=== PATIENT | male | born 1980 | race African-American/Black ===

== ENCOUNTER 2020-08-08 06:54 | Outpatient (NON) | payer OTHER, SELFPAY ==
[2020-08-08 19:16] LABS: SARS-CoV-2 RNA PCR Negative
== END 2020-08-08 06:55 ==
LOC: ANHCOVIDDT 07:15
PROVIDERS: PCP Family Medicine; Visit Provider Nurse Practitioner Family
DX: R05 Cough (principal); Z20.828 Contact with and (suspected) exposure to other viral communicable diseases
CPT/HCPCS: 87635; C9803; U0003

== ENCOUNTER 2020-08-09 07:37 | Outpatient (CLI) | payer OTHER, SELFPAY ==
--- NOTE | 2020-08-23 21:18 | WPDHOMESLEEP ---
Sleep Study - Home Unattended Date of Study: 08/09/20 Ordering Provider: Patricio Hebert MD Interpreting Physician: Neris Friend MD Home Sleep Study Type: Watch PAT Height: 1.88 m Weight: 95.708 kg Body Mass Index: 27.1 Neck Circumference (inches): 16 [place]: 21 Reason for Sleep Study hypersomnolence Sleep History Bola Shepherd is a 39 year-old male The complains of restlessness and feeling that he cannot breathe during sleep. He has been told by partners that he appears to struggle to breathe at night. He yawned throughout the day. If he is not physically exerting himself PE he will instantly fall asleep. 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 He constantly snores and is constantly loud enough that others complain about it. He frequently awakens at night with heartburn, belching or coughing. He occasionally awakens from sleep feeling short of breath. He rarely has trouble sleep with a cold and rarely gasps for breath at night. He frequently has breathing problems with this by others at night. He rarely sweats excessively at night. He occasionally notices his heart pounding or beating irregularly at night. He constantly falls asleep during the day, frequently involuntarily, rarely while driving. He does not fall asleep while he is physically active. He does not have loss of muscle tone with strong emotion. 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 He does not feel paralyzed on waking or falling asleep. He does not have vivid dreamlike scenes upon awakening or falling asleep. He is not afraid to go to sleep. He denies having nightmares. He occasionally remembers his dreams. He constantly has racing thoughts. He frequently feels sad or depressed. He constantly has anxiety. He denies having muscular tension. He constantly notices parts of his body jerking. He frequently kicks at night. He rarely has crawling and aching feelings in his legs. He constantly has leg pain during the night. He rarely has morning jaw pain. He constantly grind his teeth during sleep. He constantly has bothered by pain during the day, frequently is awakened by pain at night. He constantly wakes up feeling stiff in the morning. Frequently has sore achy muscles in the morning and occasionally wakes up with pain in the neck and spine. He has concentration difficulties, depression, feels unable to have a good time and indicates sexual probelms. Normal bedtime is 9:00 p.m. falling asleep immediately rarely waking up at night. When he does wake during the night he finds things that need to be done throughout his house. He wakes the morning at 4:00 a.m.. We can schedule shows that he goes to bed between 10:00 p.m. and 12 midnight and wakes at 4 in the morning. He estimates getting 4 hours of sleep at night. He does not take naps. A short nap may be refreshing. He is drowsy in the morning for 2 hours or longer. He feels better during the afternoon compared to other times of day. Habits: Tobacco 3/4 pack per day. Caffeine 2 cans per day. Alcohol 1-3 cans per day. No recreational drugs. [facility] Past Medical History Medical History BMI 26.0-26.9,adult Tobacco abuse Family History Family History Father Heart disease Mother Drug abuse Substance abuse Alcohol abuse Sibling Cerebral palsy Other Depression Diabetes mellitus Hypertension Social History Social History Smoking packs per day: 0.5 Smoking cigarettes per day: 10.0 Years smoked: 15 Smoking pack-years: 7.50 Smoking status: Current every day smoker Alcohol intake: current Medications Home Medications Medication Instructions Recorded Confirmed Type sertraline 50 mg tablet 50 mg PO DAILY #30 tablet 08/10/20
[2020-08-23 21:47] VITALS: BMI 27.1
== END 2020-08-09 07:38 | disposition home or self-care (01) ==
LOC: ANHCSM 07:38
PROVIDERS: PCP Family Medicine; Visit Provider Family Medicine
DX: G47.00 Insomnia, unspecified (principal)
CPT/HCPCS: 95800

== ENCOUNTER 2021-01-04 14:20 | Emergency (ER) | payer OTHER, SELFPAY ==
--- NOTE | ~2021-01-04 | CT_ITS ---
EXAMINATION: CT abdomen pelvis w con DATE: 01/04/2021 16:48 INDICATION: Left lower abdominal pain TECHNIQUE: Computed tomography (CT) of the abdomen and pelvis was performed with 100 mL Omnipaque-350 intravenous contrast. Automated exposure control and iterative reconstruction technique were employe d. The dose-length product was 774.64 mGy-cm. COMPARISON: None FINDINGS: Mild dependent atelectasis in the bilateral lower lobes. Heart size is normal. No pericardial or pleu ral effusion. There are at least 3 less than 5 mm low-attenuation hepatic lesions which are too small to definitively characterize most likely cysts or hemangiomas. Mild focal hepatic steatosis at the l igamentum teres. Gallbladder, spleen, pancreas, bilateral adrenal glands and kidneys are normal. Flui d throughout the colon consistent with diarrhea. Mucosal hyperemia and prominent edematous wall thick ening throughout the colon consistent with pancolitis. No pneumatosis or portal venous gas. Normal sm all bowel and appendix. Bladder is normal. No free intraperitoneal gas or fluid. No pathologically en larged abdominal or pelvic lymphadenopathy. Mild thoracolumbar levocurvature. Mild scattered degenera tive skeletal changes. IMPRESSION: 1. Pancolitis and favor infectious or inflammatory over ischemic etiologies. Reviewed, dictated and finalized at location A.
[2021-01-04 14:41] VITALS: BP 128/80; PULSE 92; RESP 18; TEMP 36.7; O2SAT 98
[2021-01-04 14:57] LABS: Hematocrit 42.8 % (42.0-52.0); Hemoglobin 14.4 g/dL (14.0-18.0); Mean Corpuscular HGB Conc 33.6 g/dl (32-36); Mean Corpuscular Volume 89.2 fl (80-100); Mean Platelet Volume 8.4 fl (7.4-10.4); Platelet Count Result 255 k/mm3 (150-375); Red Cell Distribution Width 12.2 % (11.5-14.5); White Blood Count 7.7 K/mm3 (4.5-10.0)
[2021-01-04 15:02] LABS: Add Urine Microscopic? YES; Appearance Urine Cloudy (Clear); Bacteria Urine Trace /hpf; Bilirubin Urine 1+ (Negative); Blood Urine Negative (Negative); Color Urine Amber (Yellow); Glucose Urine UA Negative (Negative); Ketones Urine 1+ mg/dL (Negative); Leukocyte Esterase Ur Negative LEU/UL (Negative); Mucus Urine Heavy /lpf; Nitrate Urine Negative (Negative); Protein Urine 2+ mg/dL (Negative); Squamous Epithelial Cell Urine Occasional /hpf (Few); Urobilinogen Urine Negative mg/dL (<2.0); WBC Urine 0-3 /hpf
[2021-01-04 15:10] LABS: Alanine Aminotransferase 12 U/L (4-50); Albumin Level 4.3 g/dL (3.5-5.1); Alkaline Phosphatase 74 U/L (38-126); Anion Gap 5 mmol/L (8-16); Aspartate Amino Transferase 33 U/L (17-59); Bilirubin,Total 0.6 mg/dL (0.2-1.3); Blood Urea Nitrogen 8 mg/dL (9-20); Calcium 9.1 mg/dL (8.4-10.2); Carbon Dioxide 31 mmol/L (22-30); Chloride 104 mmol/L (98-107); Estimated CRCL calculation 102 ml/min; Estimated Glomerular Filt Rate > 60; Glucose 94 mg/dL (75-110); Potassium 3.7 mmol/L (3.4-5.0); Sodium 140 mmol/L (137-145)
[2021-01-04 15:14] VITALS: BP 143/84; PULSE 82; RESP 17; O2SAT 98
[2021-01-04 15:19] LABS: Prothrombin Time 13.3 Seconds (11.1-14.7)
[2021-01-04 15:29] LABS: Specific Grav Ur 1.035 (1.001-1.035)
[2021-01-04 15:45] LABS: Band Neutrophils Percent 9 % (0-6); Eosinophils Absolute Manual 0.23 K/mm3 (0.02-0.5); Eosinophils Percent Manual 3 % (0-4); Lymphocytes Absolute Manual 2.31 K/mm3 (1.1-4.5); Monocytes Absolute Manual 1.54 K/mm3 (0.1-0.90); Monocytes Percent Manual 20 % (3-9); Neutrophils Absolute Manual 3.61 K/mm3 (1.3-6.7); Neutrophils Percent Manual 38 % (46-73); Platelet Estimate Adequate (Adequate); Total Cells Counted 100
--- NOTE | 2021-01-04 16:08 | ED.ABDPAIN ---
HPI - Abdominal Pain General Chief Complaint: Abdominal Pain Stated Complaint: bloody stool, abd pain Time Seen by Provider: 01/04/21 15:52 Source: patient, RN notes reviewed and old records reviewed Mode of arrival: ambulatory Limitations: no limitations History of Present Illness HPI narrative: This is a 40 year old male who presents from his PCP's office for evaluation of left lower abdominal pain with bloody stools. He reports having constant lower abdominal pain for 1 month. His stools are occasionally bloody. He states this morning he he passed bright red blood. He reports nausea and he state he had fever 100 F at his PCP today. He states they wanted to do labs and CT scan but they were unable to get approved in timely fashion. Denies travel out of country Related Data Home Medications Medication Instructions Recorded Confirmed nystatin TOPICAL 01/04/21 nystatin [Nystop] TOPICAL 01/04/21 sertraline mg 01/04/21 Allergies Allergy/AdvReac Type Severity Reaction Status Date / Time diphenhydramine Allergy Drowsy Verified 01/04/21 13:14 [From Benadryl Allergy] Review of Systems Review of Systems: All systems reviewed & are unremarkable except as noted in HPI and below Constitutional: Constitutional: Denies chills Cardiovascular: Cardiovascular: Denies chest pain Respiratory: Respiratory: Denies cough and Denies dyspnea Gastrointestinal: Gastrointestinal: Reports abdominal pain, Reports nausea and Denies vomiting PMF Past Medical History Medical History BMI 26.0-26.9,adult BMI 28.0-28.9,adult Tobacco abuse Family History Family History Father Heart disease Mother Drug abuse Substance abuse Alcohol abuse Sibling Cerebral palsy Other Depression Diabetes mellitus Hypertension Social History Social History (Updated 01/04/21 @ 13:17 by Carmen Mejias CMA) Smoking packs per day: 0.5 Smoking cigarettes per day: 10.0 Years smoked: 15 Smoking pack-years: 7.50 Smoking status: Former smoker Tobacco type: cigarettes Alcohol intake: current Substance use: current Substance use type: marijuana 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 Gender identity (if verbalized by the patient): Male Exam Const: General: no acute distress and alert Orientation/consciousness: patient oriented x3 Eyes: EOM: EOMs intact bilaterally Chest: Chest palpation & inspection: normal inspection of the chest Resp: Effort & Inspection: normal respiratory effort and no retractions Auscultation: clear to auscultation bilaterally Cardio: Rate: regular rate Rhythm: regular rhythm Heart sounds: no murmurs GI: GI Palp: Yes Soft to palpation, Yes Tenderness to palpation present (GI) (LLQ) and No Guarding due to palpation present (GI) Auscultation: normal bowel sounds Skin: General skin exam: normal color Rashes: no rashes Neuro: General: patient oriented x3, moves all extremities and CN's II-XI intact bilaterally Extrem: General: normal to inspection Psych: Mental Status: mental status grossly normal Affect: normal affect Course Reevaluation(s) Reevaluation #1: PAtient is stable. I discussed with patient plan to discharge on antibiotics with follow up with GI. He will attempted to give stool studies Date: 01/04/21 Time: 17:39 Consultations Consultation #1: I have discussed with Dr. Wynne about patient symptoms, labs and CT . He recommends antibiotics, stool studies, outpatient colonoscopy and follow up in clinic. Date: 01/04/21 Time: 17:40 Vital Signs Vital signs: Vital Signs Temperature 98.1 F 01/04/21 14:41 Pulse Rate 92 01/04/21 14:41 Respiratory Rate 18 01/04/21 14:41 Blood Pressure 128/80 01/04/21 14:41 Pulse Oximetry 98 01/04/21 14:41 Temperature 98.1 F 01/04/21 14:41 Pulse Rate 82
[2021-01-04] MEDS: LACTATED RINGERS 1,000 ML 999 ML IV CONT (16:21)
[2021-01-04] MEDS: metroNIDAZOLE 250 MG TABLET 500 MG PO (18:44)
[2021-01-04] MEDS: CIPROFLOXACIN 500 MG TAB PO (18:44)
[2021-01-04 18:54] VITALS: BP 143/94; PULSE 86; RESP 18; O2SAT 100
== END 2021-01-04 18:56 | disposition home or self-care (01) ==
PROVIDERS: Emergency Medicine; Emergency Provider General Practice; PCP Family Medicine
DX: K51.00 Ulcerative (chronic) pancolitis without complications (principal); Z87.891 Personal history of nicotine dependence
CPT/HCPCS: 36415; 74177; 80053; 81001; 85025; 85610; 85730; 86850; 86900; 86901; 96360; 99284; A9270; J7120; Q9967

== ENCOUNTER 2021-01-11 11:33 | Inpatient (IN) | payer OTHER, SELFPAY ==
[2021-01-11] VITALS (8 sets, daily range): BP systolic 116–148; BP diastolic 68–91; PULSE 90–113; RESP 14–27; TEMP 35.9–37.1; O2SAT 99–100; BMI 26.6
--- NOTE | ~2021-01-11 | CT_ITS ---
EXAMINATION: CT abdomen pelvis w con INDICATION: Abdominal pain TECHNIQUE: Computed tomographic images of the abdomen and pelvis were obtained after the administrati on of 100 cc of Omnipaque 350 intravenous contrast. The dose-length product (DLP) was 01/04/2021 mGy-c m. Automated exposure control and iterative reconstruction technique were employed. COMPARISON: 01/04/2021 FINDINGS: The lung bases are clear. The heart size is normal. Cysts of the liver measure up to 5 mm. The spleen, pancreas, gallbladder, and adrenal glands are normal. The kidneys are unremarkable. There is diffuse wall thickening of the entire colon with interval worsening since the prior examination. The appendix is normal. No pathologically enlarged abdominal or pelvic lymph nodes are identified. Th ere is no free intraperitoneal gas or evidence of bowel obstruction. IMPRESSION: 1. Pancolitis with interval worsening. Reviewed, dictated and finalized at location A.
--- NOTE | 2021-01-11 11:49 | ED.NAVMDI ---
HPI - Nausea/Vomiting/Diarrhea General Chief complaint: Nausea/Vomiting/Diarrhea Stated complaint: dr powell sent for dehydration Time Seen by Provider: 01/11/21 11:48 History of Present Illness HPI Narrative: 40 yo w/ h/o pancolitis sent from Dr. Powell's office for dehydration. He was originally seen here in the ED for bloody diarrhea on 01/04. At that time he was found to have pancolitis on CT. He was started on Cipro and Flagyl and referred to GI. He had a follow-up appointment to day and he was noted to be dehydrated with low blood pressure. He reports that his symptoms have been getting worse. He has diffuse abdominal pain. He reports that he is still having bloody diarrhea. He vomited for the first time today. He denies any medical problem and takes no other medications. Related Data Home Medications Medication Instructions Recorded Confirmed nystatin TOPICAL 01/04/21 01/05/21 nystatin [Nystop] TOPICAL 01/04/21 01/05/21 sertraline mg 01/04/21 01/05/21 Allergies Allergy/AdvReac Type Severity Reaction Status Date / Time diphenhydramine AdvReac Drowsy Verified 01/11/21 11:49 [From Benadryl Allergy] Review of Systems Review of Systems: All systems reviewed & are unremarkable except as noted in HPI and below Constitutional: Constitutional: Reports chills, Reports fatigue, Denies fever(s) and Reports weakness Eyes: Eyes: Reports no additional eye complaints ENT: Reports system reviewed and no additional complaints, except as documented Cardiovascular: Cardiovascular: Denies chest pain Respiratory: Respiratory: Denies dyspnea Gastrointestinal: Gastrointestinal: Reports abdominal pain, Reports diarrhea, Reports nausea and Reports vomiting Genitourinary: Genitourinary: Reports no additional male genitourinary complaints Musculoskeletal: Musculoskeletal: Reports back pain Neurologic: Reports dizziness and Reports weakness Endocrine: Endocrine: Denies polydipsia [facility] Past Medical History Medical History BMI 26.0-26.9,adult BMI 28.0-28.9,adult Tobacco abuse Family History Family History Father Heart disease Mother Drug abuse Substance abuse Alcohol abuse Sibling Cerebral palsy Other Depression Diabetes mellitus Hypertension Social History Social History Smoking packs per day: 0.5 Smoking cigarettes per day: 10.0 Years smoked: 15 Smoking pack-years: 7.50 Smoking status: Former smoker (reports quitting about 1 month ago) Tobacco type: cigarettes Alcohol intake: current Substance use: current Substance use type: marijuana 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 Gender identity (if verbalized by the patient): Male Exam Const: General: no acute distress, alert and ill appearing Orientation/consciousness: patient oriented x3 HENMT: Mouth: Yes dry mucous membranes Neck: Neck: normal visual inspection Resp: Effort & Inspection: normal respiratory effort Auscultation: clear to auscultation bilaterally Cardio: Rate: regular rate Rhythm: regular rhythm GI: Inspection: non-distended GI Palp: Yes Soft to palpation, Yes Tenderness to palpation present (GI) (diffuse), No Guarding due to palpation present (GI) and No Rebound tenderness present Skin: General skin exam: normal color Neuro: General: patient oriented x3, moves all extremities, no focal motor deficits and CN's II-XI intact bilaterally Speech: normal speech Extrem: General: normal to inspection Course Vital Signs Vital signs: Vital Signs Temperature 35.9 C L 01/11/21 11:44 Pulse Rate 113 H 01/11/21 11:44 Respiratory Rate 18 01/11/21 11:44 Blood Pressure 116/90 01/11/21 11:44 Pulse Oximetry 100 01/11/21 11:44 Temperature 35.9 C L 01/11/21 11:44 Pulse Rate 98 01/11/21 13:19
[2021-01-11] MEDS: SODIUM CHLORIDE 0.9% IV 2,000 ML 999 ML IV CONT (12:08)
[2021-01-11] MEDS: ONDANSETRON INJ 4 MG/2 ML VIAL IV PUSH ×3 (12:09→21:10)
[2021-01-11 12:28] LABS: Hematocrit 47.9 % (42.0-52.0); Hemoglobin 16.4 g/dL (14.0-18.0); Mean Corpuscular HGB Conc 34.2 g/dl (32-36); Mean Corpuscular Volume 87.6 fl (80-100); Mean Platelet Volume 8.8 fl (7.4-10.4); Platelet Count Result 430 k/mm3 (150-375); Red Blood Count 5.47 M/mm3 (4.6-6.20); Red Cell Distribution Width 12.2 % (11.5-14.5); White Blood Count 11.3 K/mm3 (4.5-10.0)
[2021-01-11 12:37] LABS: Alanine Aminotransferase 13 U/L (4-50); Albumin Level 4.3 g/dL (3.5-5.1); Alkaline Phosphatase 79 U/L (38-126); Anion Gap 8 mmol/L (8-16); Aspartate Amino Transferase 48 U/L (17-59); Bilirubin,Total 0.4 mg/dL (0.2-1.3); Blood Urea Nitrogen 12 mg/dL (9-20); Calcium 9.6 mg/dL (8.4-10.2); Carbon Dioxide 30 mmol/L (22-30); Chloride 101 mmol/L (98-107); Estimated CRCL calculation 86 ml/min; Estimated Glomerular Filt Rate > 60; Glucose 129 mg/dL (75-110); Lipase 59 U/L (23-300); Potassium 3.5 mmol/L (3.4-5.0); Sodium 139 mmol/L (137-145)
[2021-01-11 12:38] LABS: Lactic Acid Reflex 1.1 mmol/L (0.7-2.1)
[2021-01-11 12:41] LABS: Band Neutrophils Percent 10 % (0-6); Eosinophils Absolute Manual 0.56 K/mm3 (0.02-0.5); Eosinophils Percent Manual 5 % (0-4); Lymphocytes Absolute Manual 2.37 K/mm3 (1.1-4.5); Monocytes Percent Manual 16 % (3-9); Neutrophils Absolute Manual 6.55 K/mm3 (1.3-6.7); Neutrophils Percent Manual 48 % (46-73); Platelet Estimate Adequate (Adequate); Total Cells Counted 100
[2021-01-11] MEDS: MORPHINE SULFATE (*CRX) 4 MG/ML INJ IV PUSH ×3 (14:26→21:10)
[2021-01-11] MEDS: LACTATED RINGERS 1,000 ML 150 ML IV CONT (16:39)
--- NOTE | 2021-01-11 21:05 | PM.IMHP ---
H&P: HPI History of Present Illness Date/Time: 01/11/21 21:05 40 yo w/ h/o pancolitis sent from Dr. Wynne's office for dehydration. He was originally seen here in the ED for bloody diarrhea on 01/04. At that time he was found to have pancolitis on CT. He was started on Cipro and Flagyl and referred to GI. He had a follow-up appointment today and he was noted to be dehydrated with low blood pressure. He reports that his symptoms have been getting worse. He has diffuse abdominal pain, some nausea. He reports that he is still having bloody diarrhea. He vomited for the first time today. He denies any medical problem and takes no other medications. Chief Complaint: bloody diarrhea Review of Systems Review of Systems: Narrative: - CONSTITUTIONAL: Denies weight loss, reports mild fever and chills. - HEENT: Denies changes in vision and hearing - RESPIRATORY: Denies SOB and cough. - CV: Denies palpitations and CP. - GI: reports abdominal pain, nausea, vomiting and diarrhea. - : Denies dysuria and urinary frequency. - MSK: Denies myalgia and joint pain. - SKIN: Denies rash and pruritus. - NEUROLOGICAL: Denies headache and syncope. - PSYCHIATRIC: Denies recent changes in mood. Denies anxiety and depression. All systems reviewed & are unremarkable except as noted in HPI and below Constitutional: Constitutional: Reports fatigue and Reports weakness Neurologic: Reports weakness Endocrine: Endocrine: Reports fatigue [facility] Past Medical History Medical History BMI 26.0-26.9,adult BMI 28.0-28.9,adult Tobacco abuse Family History Family History Father Heart disease Mother Drug abuse Substance abuse Alcohol abuse Sibling Cerebral palsy Other Depression Diabetes mellitus Hypertension Social History Social History Smoking packs per day: 0.75 Smoking cigarettes per day: 15.0 Years smoked: 20 Smoking pack-years: 15.00 Smoking status: Former smoker Tobacco type: cigarettes Alcohol intake: never Substance use: never Substance use type: marijuana 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 Gender identity (if verbalized by the patient): Male Spiritual care concerns: No Meds Home Medications and Allergies Home Medications Medication Instructions Recorded Confirmed Type ciprofloxacin HCl 500 mg PO Q12H #14 tablet 01/04/21 01/11/21 Rx metronidazole [Flagyl] 500 mg PO Q8H 7 Days #21 tablet 01/04/21 01/11/21 Rx tramadol 50 mg tablet 50 mg PO Q8H PRN #60 tablet 01/08/21 01/11/21 Rx Allergies Allergy/AdvReac Type Severity Reaction Status Date / Time diphenhydramine AdvReac Drowsy Verified 01/11/21 11:49 [From Benadryl Allergy] Vital Signs Vital Signs - 24 hr 01/11/21 11:44 01/11/21 13:01 01/11/21 13:16 Temperature 96.6 F L Pulse Rate 113 H 100 94 Respiratory Rate 18 20 14 Blood Pressure 116/90 148/89 H 139/87 Pulse Oximetry 100 100 100 01/11/21 13:19 01/11/21 14:16 01/11/21 14:30 Temperature 98.7 F Pulse Rate 98 104 H 90 Respiratory Rate 27 H 22 H 20 Blood Pressure 116/87 128/91 H 122/75 Pulse Oximetry 100 99 100 01/11/21 14:39 Temperature Pulse Rate 96 Respiratory Rate 16 Blood Pressure 123/80 Pulse Oximetry 99 Exam Narrative: Exam Narrative: GENERAL: The patient is well developed, in mild distress HEENT: Nonicteric sclerae, PERRLA, EOMI. Oropharynx clear. dry mucous membranes. Conjunctivae appear well perfused. CHEST: Chest wall is nontender. HEART: Regular rate and rhythm without murmur, rubs, or gallops LUNGS: Clear to auscultation bilaterally. no respiratory distress ABDOMEN: Soft, positive bowel sounds, tender abdomen diffusely, no organomegaly. SKIN: No rash, no excessive bruising, petechiae, or purpura. NEUROLOGIC: Cranial nerves II-XII in
[2021-01-11 21:53] LABS: CRP 5.7 mg/dL (<1.0)
[2021-01-11 22:02] LABS: Erythrocyte Sedimentation Rate 42 mm/hr (0-20)
[2021-01-11] MEDS: DICYCLOMINE HCL 10 MG CAPSULE PO (22:39)
[2021-01-12] VITALS (8 sets, daily range): BP systolic 101–130; BP diastolic 55–75; PULSE 77–101; RESP 16–23; TEMP 36.2–36.7; O2SAT 95–99; BMI 26.6
[2021-01-12] MEDS: LACTATED RINGERS 1,000 ML 150 ML IV CONT ×5 (00:14→23:57)
[2021-01-12] MEDS: MORPHINE SULFATE (*CRX) 4 MG/ML INJ IV PUSH (02:51)
--- NOTE | 2021-01-12 08:54 | WPDGICN ---
Assessment and Plan Assessment and plan (1) Pancolitis: Code(s): K51.00 - Ulcerative (chronic) pancolitis without complications Status: Acute Assessment and Plan: Pancolitis by CT scan. Differential diagnosis includes infectious etiology. Because of the duration of his illness inflammatory bowel disease also needs to be considered. Agree with IV fluid rehydration. Broad-spectrum antibiotic coverage. Stool cultures will be obtained. A colonoscopy will be arranged hopefully this afternoon to further define the etiology of his colitis. (2) Bloody diarrhea: Code(s): R19.7 - Diarrhea, unspecified Status: Acute Assessment and Plan: Bloody diarrhea on the basis of pancolitis. The bleeding has diminished. His hemoglobin has remained stable. Plan is as described above his treatment for his colitis. Will follow with you during the hospital stay. GI Consult Note Consult date/time: 01/12/21 08:54 HPI: Bola Shepherd is a 40 year old male With a 1 month history of bloody diarrhea. Patient initially presented to the emergency room on 524 with a one-month history of abdominal pain bloody diarrhea. He denies any travel. No one else in the family has been ill. In the emergency room a CT scan was performed which revealed pancolitis. He was placed on Cipro and Flagyl for presumed infectious etiology. Stool cultures were obtained in to date have been negative. He presented to my office yesterday with a low blood pressure. He was diaphoretic. Complained of diffuse abdominal pain ongoing watery bloody stools. Was sent to the emergency room in readmitted. Follow-up CT scan reveals worsening of his pancolitis. Patient has no family history of inflammatory bowel disease. He has no history of travel. No change in his diet. He has been very weak. Although he feels somewhat improved with pain medicines and IV fluid rehydration overnight. He states this morning for the 1st time in quite a while he had watery diarrhea with no evidence of blood. Pain is improved with pain injections. Past medical history is significant for depression and Zoloft is is only recent previous medication. Review of Systems Review of Systems: All systems reviewed & are unremarkable except as noted in HPI and below PMFSH Past Medical History Medical History BMI 26.0-26.9,adult BMI 28.0-28.9,adult Tobacco abuse Family History Family History Father Heart disease Mother Drug abuse Substance abuse Alcohol abuse Sibling Cerebral palsy Other Depression Diabetes mellitus Hypertension Social History Social History Smoking packs per day: 0.75 Smoking cigarettes per day: 15.0 Years smoked: 20 Smoking pack-years: 15.00 Smoking status: Former smoker Tobacco type: cigarettes Alcohol intake: never Substance use: never Substance use type: marijuana 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 Gender identity (if verbalized by the patient): Male Spiritual care concerns: No Meds Home Medications and Allergies Home Medications Medication Instructions Recorded Confirmed Type ciprofloxacin HCl 500 mg PO Q12H #14 tablet 01/04/21 01/11/21 Rx metronidazole [Flagyl] 500 mg PO Q8H 7 Days #21 tablet 01/04/21 01/11/21 Rx tramadol 50 mg tablet 50 mg PO Q8H PRN #60 tablet 01/08/21 01/11/21 Rx Allergies Allergy/AdvReac Type Severity Reaction Status Date / Time diphenhydramine AdvReac Drowsy Verified 01/11/21 11:49 [From Benadryl Allergy] Vital Signs Vital Signs - 24 hr 01/11/21 11:44 01/11/21 13:01 01/11/21 13:16 Temperature 96.6 F L Pulse Rate 113 H 100 94 Respiratory Rate 18 20 14 Blood Pressure 116/90 148/89 H 139/87 Pulse Oximetry 100 100 100 01/11/21 13:19 01/11/21 14:1
[2021-01-12] MEDS: PANTOPRAZOLE SODIUM IV 40 MG VIAL IV PUSH (09:39)
[2021-01-12] MEDS: DICYCLOMINE HCL 10 MG CAPSULE PO ×2 (09:39→15:58)
--- NOTE | 2021-01-12 11:25 | WPDANESEPPF ---
Anes - Initial Pre Proc Eval Procedure: Operation Date: 01/12/21 15:15 Proposed Procedures p Colonoscopy - Ben Wynne MD Date/Time: 01/12/21 11:25 Surgeon: Susan Friedman MD Pre Op Diagnosis: pancolitis Patient Data Age: 40 Gender: M Height: 6 ft 2 in Weight: 94 kg Last Vital Signs Temp 36.2 C L 01/12/21 11:16 Pulse 89 01/12/21 11:16 Resp 20 01/12/21 11:16 BP 121/70 01/12/21 11:16 Pulse Ox 96 01/12/21 11:16 Allergies Allergy/AdvReac Type Severity Reaction Status Date / Time diphenhydramine AdvReac Drowsy Verified 01/11/21 11:49 [From Benadryl Allergy] Home Medications Medication Instructions Recorded Confirmed Type ciprofloxacin HCl 500 mg PO Q12H #14 tablet 01/04/21 01/11/21 Rx metronidazole [Flagyl] 500 mg PO Q8H 7 Days #21 tablet 01/04/21 01/11/21 Rx tramadol 50 mg tablet 50 mg PO Q8H PRN #60 tablet 01/08/21 01/11/21 Rx Laboratory Tests 01/11/21 01/11/21 01/11/21 12:04 12:04 12:04 WBC 11.3 K/mm3 H K/mm3 (4.5-10.0) RBC 5.47 M/mm3 M/mm3 (4.6-6.20) Hgb 16.4 g/dL g/dL (14.0-18.0) Hct 47.9 % % (42.0-52.0) MCV 87.6 fl fl (80-100) MCH 30.0 pg pg (26-34) MCHC 34.2 g/dl g/dl (32-36) RDW 12.2 % % (11.5-14.5) Plt Count 430 k/mm3 H D k/mm3 (150-375) MPV 8.8 fl fl (7.4-10.4) Immature Gran % (Auto) Not Reportable Neut % (Auto) Not Reportable Lymph % (Auto) Not Reportable [place] % (Auto) Not Reportable Eos % (Auto) Not Reportable Baso % (Auto) Not Reportable Lymph # (Auto) Not Reportable [place] # (Auto) Not Reportable Eos # (Auto) Not Reportable Baso # (Auto) Not Reportable Abs Immat Gran (auto) Not Reportable Absolute Neuts (auto) Not Reportable Absolute Nucleated RBC Not Reportable Total Counted 100 Neutrophils % (Manual) 48 % % (46-73) Band Neutrophils % 10 % H % (0-6) Lymphocytes % (Manual) 21.0 % % (18-44) Monocytes % (Manual) 16 % H % (3-9) Eosinophils % (Manual) 5 % H % (0-4) Nucleated RBC % Not Reportable Abs Neuts (Manual) 6.55 K/mm3 K/mm3 (1.3-6.7) Abs Lymphs (Manual) 2.37 K/mm3 K/mm3 (1.1-4.5) Abs Monocytes (Manual) 1.80 K/mm3 H K/mm3 (0.1-0.90) Absolute Eos (Manual) 0.56 K/mm3 H K/mm3 (0.02-0.5) Platelet Estimate Adequate (Adequate) ESR Sodium 139 mmol/L mmol/L (137-145) Potassium 3.5 mmol/L mmol/L (3.4-5.0) Chloride 101 mmol/L mmol/L (98-107) Carbon Dioxide 30 mmol/L mmol/L (22-30) Anion Gap 8 mmol/L mmol/L (8-16) BUN 12 mg/dL mg/dL (9-20) Creatinine 1.20 mg/dL mg/dL (0.7-1.3) Estim Creat Clear Calc 86 ml/min ml/min Estimated GFR > 60 (59 - ) Glucose 129 mg/dL H mg/dL (75-110) Lactic Acid Calcium 9.6 mg/dL mg/dL (8.4-10.2) Total Bilirubin 0.4 mg/dL mg/dL (0.2-1.3) AST 48 U/L U/L (17-59) ALT 13 U/L U/L (4-50) Alkaline Phosphatase 79 U/L U/L (38-126) C-Reactive Protein Total Protein 8.0 g/dL g/dL (6.3-8.2) Albumin 4.3 g/dL g/dL (3.5-5.1) Lipase 59 U/L U/L Cancelled (23-300) Stool Calprotectin Stool Rotavirus Antigen Stool H. pylori Ag Stool Norovirus (PCR) Ova & Parasites 01/11/21 01/11/21 01/11/21 12:04 12:04 12:17 WBC RBC Hgb Hct MCV MCH MCHC RDW Plt Count MPV Immature Gran % (Auto) Neut % (Auto)
--- NOTE | 2021-01-12 15:50 | PM.IMPN ---
Progress Note: A&P Assessment and Plan (1) Pancolitis: Code(s): K51.00 - Ulcerative (chronic) pancolitis without complications Status: Acute (2) Dehydration: Code(s): E86.0 - Dehydration Status: Acute (3) Bloody diarrhea: Code(s): R19.7 - Diarrhea, unspecified Status: Acute (4) IBS (irritable bowel syndrome): Code(s): K58.9 - Irritable bowel syndrome without diarrhea Status: Acute Additional Plan x1 month CT wth pancolitis continue on zosyn iv recent treatment with po cirpo and Flagyl failed op therapy GI following, Dr. Wynne, recommendations appreciated s/p colonoscopy with biopsy-->IBS H/H stable, monitor continue IVF monitor BMP follow stool cultures follow blood cultures # DVT ppx: SCDs Subjective Date/time seen: 01/12/21 15:50 pt seen and evaluated; continues with abdominal pain; fiance at the beside Review of Systems Review of Systems: All systems reviewed & are unremarkable except as noted in HPI and below Exam Narrative: Exam Narrative: GENERAL: The patient is well developed, in mild distress HEENT: Nonicteric sclerae, PERRLA, EOMI. Oropharynx clear. dry mucous membranes. Conjunctivae appear well perfused. CHEST: Chest wall is nontender. HEART: Regular rate and rhythm without murmur, rubs, or gallops LUNGS: Clear to auscultation bilaterally. no respiratory distress ABDOMEN: Soft, positive bowel sounds, tender abdomen diffusely, no organomegaly. SKIN: No rash, no excessive bruising, petechiae, or purpura. NEUROLOGIC: Cranial nerves II-XII intact, alert and oriented x 3, no gross motor deficits EXTREMITIES: no edema, cyanosis or clubbing Objective Data Vital Signs Vital Signs: Vital Signs - 24 hr 01/11/21 21:53 01/12/21 05:56 01/12/21 11:16 Temperature 36.3 C L 36.6 C 36.2 C L Pulse Rate 101 H 77 89 Respiratory Rate 20 18 20 Blood Pressure 120/68 127/67 121/70 Pulse Oximetry 100 97 96 01/12/21 12:26 01/12/21 12:36 01/12/21 12:46 Temperature Pulse Rate 100 100 100 Respiratory Rate 23 H 22 H 20 Blood Pressure 101/55 L 115/61 130/75 Pulse Oximetry 99 99 99 01/12/21 14:00 Temperature 36.7 C Pulse Rate 101 H Respiratory Rate 16 Blood Pressure 116/60 Pulse Oximetry 99 Intake/Output Intake/Output: Intake & Output 01/09/21 01/10/21 01/11/21 01/12/21 23:59 23:59 23:59 23:59 Intake Total 3200 1740 Output Total 200 400 Balance 3000 1340 Meds/Results Medications: Active Medications Generic Name Dose Route Start Last Admin Trade Name Freq PRN Reason Stop Dose Admin Dicyclomine HCl 10 mg 01/11/21 20:18 01/12/21 09:39 Dicyclomine Hcl 10 Mg Capsule PO 10 mg Q6H PRN Administration Abdominal Cramping Piperacillin/Tazobactam/Dextrose 3.375 gm in 50 mls @ 100 mls/hr 01/11/21 18:00 01/12/21 13:16 Zosyn 3.375 Gm/D5w 50ml Pm IVPB 100 mls/hr Q6HR FOREIGN Administration Lactated Ringer's 1,000 mls @ 150 mls/hr 01/11/21 13:35 01/12/21 12:54 Lr - Lactated Ringers Iv IV CONT Infused .Q6H40M FOREIGN Infusion Mesalamine 800 mg 01/12/21 13:00 Mesalamine 400 Mg Delayed Release Capsule PO TID FOREIGN Methylprednisolone Sodium Succinate 40 mg 01/12/21 14:00 Methylprednisolone Sod Succ 40 Mg Vial IV PUSH Q8HR FOREIGN Morphine Sulfate 4 mg 01/11/21 13:31 01/12/21 02:51 Morphine Sulfate (*Crx) 4 Mg/Ml Inj IV PUSH 4 mg Q2H PRN Administration Pain Rated 7-10 Ondansetron HCl 4 mg 01/11/21 13:31 01/11/21 21:10 Ondansetron Inj 4 Mg/2 Ml Vial IV PUSH 4 mg Q4H PRN Administration Nausea Pantoprazole Sodium 40 mg 01/12/21 09:00 01/12/21 09:39 Pantoprazole Sodium Iv 40 Mg Vial IV PUSH 40 mg QAM FOREIGN Administration Radiology Results: ITS Impressions Abdomen/Pelvis CT 01/11/21 13:04 IMPRESSION: 1. Pancolitis with interval worsening. Labs Labs: Laboratory Results - last 24 hr 01/11/21 01/11/21 01/11/21 12:04 12:04 23:51 ESR 42
[2021-01-12] MEDS: methylPREDNISolone SOD SUCC 40 MG VIAL IV PUSH ×2 (15:59→20:37)
[2021-01-12] MEDS: MESALAMINE 400 MG DELAYED RELEASE CAPSULE 800 MG PO ×2 (15:59→20:36)
[2021-01-12] MEDS: HYDROcodone/acetaminophen (*CRX) 5-325 MG TABLET 1 TAB PO (18:18)
[2021-01-13] MEDS: DICYCLOMINE HCL 10 MG CAPSULE PO (03:15)
[2021-01-13] MEDS: HYDROcodone/acetaminophen (*CRX) 5-325 MG TABLET 1 TAB PO (03:15)
[2021-01-13 05:41] VITALS: BP 119/72; PULSE 79; RESP 18; TEMP 36.2; O2SAT 97
[2021-01-13] MEDS: methylPREDNISolone SOD SUCC 40 MG VIAL IV PUSH (06:16)
[2021-01-13] MEDS: MESALAMINE 400 MG DELAYED RELEASE CAPSULE 800 MG PO ×3 (08:55→17:38)
[2021-01-13] MEDS: PANTOPRAZOLE SODIUM IV 40 MG VIAL IV PUSH (08:55)
[2021-01-13 10:30] LABS: Anion Gap 6 mmol/L (8-16); Blood Urea Nitrogen 5 mg/dL (9-20); Calcium 8.8 mg/dL (8.4-10.2); Carbon Dioxide 32 mmol/L (22-30); Chloride 103 mmol/L (98-107); Estimated CRCL calculation 102 ml/min; Estimated Glomerular Filt Rate > 60; Glucose 180 mg/dL (75-110); Potassium 3.4 mmol/L (3.4-5.0); Sodium 141 mmol/L (137-145)
[2021-01-13 10:42] LABS: Hematocrit 36.4 % (42.0-52.0); Hemoglobin 12.2 g/dL (14.0-18.0); Mean Corpuscular HGB Conc 33.5 g/dl (32-36); Mean Corpuscular Hemoglobin 29.9 pg (26-34); Mean Corpuscular Volume 89.2 fl (80-100); Mean Platelet Volume 8.7 fl (7.4-10.4); Platelet Count Result 313 k/mm3 (150-375); Red Blood Count 4.08 M/mm3 (4.6-6.20); Red Cell Distribution Width 12.4 % (11.5-14.5); White Blood Count 9.3 K/mm3 (4.5-10.0)
[2021-01-13 10:45] LABS: Band Neutrophils Percent 13 % (0-6); Lymphocytes Absolute Manual 0.93 K/mm3 (1.1-4.5); Monocytes Absolute Manual 0.27 K/mm3 (0.1-0.90); Monocytes Percent Manual 3 % (3-9); Neutrophils Absolute Manual 8.09 K/mm3 (1.3-6.7); Neutrophils Percent Manual 74 % (46-73); Platelet Estimate Adequate (Adequate); Total Cells Counted 100
--- NOTE | 2021-01-13 11:11 | P.PNAN_ITS ---
Anes - Prog Note Post-Op Date/Time: 01/13/21 11:11 Cardiovascular status: normal Respiratory status: normal Airway patency: baseline Mental status: baseline Post-Op hydration status: normal Vital Signs: Last Vital Signs Temp 36.2 C L 01/13/21 05:41 Pulse 79 01/13/21 05:41 Resp 18 01/13/21 05:41 BP 119/72 01/13/21 05:41 Pulse Ox 97 01/13/21 05:41 Pain Score (VAS): 0 I/O: Intake & Output 01/12/21 01/13/21 01/13/21 23:59 07:59 15:59 Intake Total 1600 850 Balance 1600 850 Laboratory Tests 01/13/21 10:07 01/13/21 10:07 01/13/21 01/13/21 10:07 10:07 WBC 9.3 RBC 4.08 L Hgb 12.2 L D Hct 36.4 L MCV 89.2 MCH 29.9 MCHC 33.5 RDW 12.4 Plt Count 313 MPV 8.7 Immature Gran % (Auto) Not Reportable Neut % (Auto) Not Reportable Lymph % (Auto) Not Reportable [place] % (Auto) Not Reportable Eos % (Auto) Not Reportable Baso % (Auto) Not Reportable Lymph # (Auto) Not Reportable [place] # (Auto) Not Reportable Eos # (Auto) Not Reportable Baso # (Auto) Not Reportable Abs Immat Gran (auto) Not Reportable Absolute Neuts (auto) Not Reportable Absolute Nucleated RBC Not Reportable Total Counted 100 Neutrophils % (Manual) 74 H Band Neutrophils % 13 H Lymphocytes % (Manual) 10.0 L Monocytes % (Manual) 3 Nucleated RBC % Not Reportable Abs Neuts (Manual) 8.09 H Abs Lymphs (Manual) 0.93 L Abs Monocytes (Manual) 0.27 Platelet Estimate Adequate Sodium 141 Potassium 3.4 Chloride 103 Carbon Dioxide 32 H Anion Gap 6 L BUN 5 L D Creatinine 1.00 Estim Creat Clear Calc 102 Estimated GFR > 60 Glucose 180 H Calcium 8.8 Microbiology 01/11/21 12:17 Blood Blood Culture - Preliminary 01/11/21 12:17 Blood Blood Culture - Preliminary 01/11/21 23:51 Stool Clostridioides difficile Toxin Assay - Final Post-procedural complaints: none Patient Feedback: Patient satisfied with anesthetic care.
--- NOTE | 2021-01-13 12:55 | PM.IMPN ---
Progress Note: A&P Assessment and Plan (1) Pancolitis: Code(s): K51.00 - Ulcerative (chronic) pancolitis without complications Status: Acute (2) Dehydration: Code(s): E86.0 - Dehydration Status: Acute (3) Bloody diarrhea: Code(s): R19.7 - Diarrhea, unspecified Status: Acute (4) IBS (irritable bowel syndrome): Code(s): K58.9 - Irritable bowel syndrome without diarrhea Status: Acute Additional Plan x1 month CT wth pancolitis continue on zosyn iv recent treatment with po cirpo and Flagyl failed op therapy GI following, Dr. Wynne, recommendations appreciated s/p colonoscopy with biopsy-->IBS H/H stable, monitor continue IVF monitor BMP follow stool cultures follow blood cultures # DVT ppx: SCDs Subjective Date/time seen: 01/13/21 12:55 Pancolitis Pt seen and evaluated; reports abdominal pain (06/17) and cramping overnight; denies any N/V Review of Systems Review of Systems: All systems reviewed & are unremarkable except as noted in HPI and below Exam Narrative: Exam Narrative: GENERAL: The patient is well developed, in mild distress HEENT: Nonicteric sclerae, PERRLA, EOMI. Oropharynx clear. dry mucous membranes. Conjunctivae appear well perfused. CHEST: Chest wall is nontender. HEART: Regular rate and rhythm without murmur, rubs, or gallops LUNGS: Clear to auscultation bilaterally. no respiratory distress ABDOMEN: Soft, positive bowel sounds, tender abdomen diffusely, no organomegaly. SKIN: No rash, no excessive bruising, petechiae, or purpura. NEUROLOGIC: Cranial nerves II-XII intact, alert and oriented x 3, no gross motor deficits EXTREMITIES: no edema, cyanosis or clubbing Objective Data Vital Signs Vital Signs: Vital Signs - 24 hr 01/12/21 14:00 01/12/21 20:00 01/12/21 22:00 Temperature 36.7 C 36.3 C L Pulse Rate 101 H 90 Respiratory Rate 16 18 Blood Pressure 116/60 107/57 L Pulse Oximetry 99 95 95 01/13/21 05:41 Temperature 36.2 C L Pulse Rate 79 Respiratory Rate 18 Blood Pressure 119/72 Pulse Oximetry 97 Intake/Output Intake/Output: Intake & Output 01/10/21 01/11/21 01/12/21 01/13/21 23:59 23:59 23:59 23:59 Intake Total 3200 3390 850 Output Total 200 400 Balance 3000 2990 850 Meds/Results Medications: Active Medications Generic Name Dose Route Start Last Admin Trade Name Freq PRN Reason Stop Dose Admin Hydrocodone Bitart/Acetaminophen 1 tab 01/12/21 17:27 01/13/21 03:15 Hydrocodone/Acetaminophen (*Crx) 5-325 Mg Tablet PO 1 tab Q6H PRN Administration Pain Rated 4-10 Dicyclomine HCl 10 mg 01/11/21 20:18 01/13/21 03:15 Dicyclomine Hcl 10 Mg Capsule PO 10 mg Q6H PRN Administration Abdominal Cramping Piperacillin/Tazobactam/Dextrose 3.375 gm in 50 mls @ 100 mls/hr 01/11/21 18:00 01/13/21 12:01 Zosyn 3.375 Gm/D5w 50ml Pm IVPB 100 mls/hr Q6HR FOREIGN Administration Lactated Ringer's 1,000 mls @ 150 mls/hr 01/11/21 13:35 01/13/21 05:32 Lr - Lactated Ringers Iv IV CONT Not Given .Q6H40M FOREIGN Mesalamine 800 mg 01/12/21 13:00 01/13/21 12:03 Mesalamine 400 Mg Delayed Release Capsule PO 800 mg TID FOREIGN Administration Methylprednisolone Sodium Succinate 40 mg 01/12/21 14:00 01/13/21 06:16 Methylprednisolone Sod Succ 40 Mg Vial IV PUSH 40 mg Q8HR FOREIGN Administration Ondansetron HCl 4 mg 01/11/21 13:31 01/11/21 21:10 Ondansetron Inj 4 Mg/2 Ml Vial IV PUSH 4 mg Q4H PRN Administration Nausea Pantoprazole Sodium 40 mg 01/12/21 09:00 01/13/21 08:55 Pantoprazole Sodium Iv 40 Mg Vial IV PUSH 40 mg QAM FOREIGN Administration Radiology Results: ITS Impressions Abdomen/Pelvis CT 01/11/21 13:04 IMPRESSION: 1. Pancolitis with interval worsening. Labs Labs: Laboratory Results - last 24 hr 01/13/21 01/13/21 10:07 10:07 WBC 9.3 RBC 4.08 L Hgb 12.2 L D Hct 36.4 L MCV 89.2 MCH 29.9 MCHC 33.5 RDW 1
--- NOTE | 2021-01-13 12:58 | WPDGIPROGNO ---
Progress Note: A&P Assessment and Plan (1) Pancolitis: Code(s): K51.00 - Ulcerative (chronic) pancolitis without complications Status: Acute Assessment and Plan: - Colonoscopy 01-12-21 Pancolitis s/p multiple biopsy - Follow up with Dr Wynne for Biopsy results out patient - Switch to oral prednisone - Continue mesalamine out patient - Continue present diet. - May be discharged home if tolerates Time Spent With Patient Time with patient: 25 - 35 minutes Subjective Date/time seen: 01/13/21 12:58 Review of Systems Review of Systems: Narrative: Feeling much better today. Tolerating solids. Only 2 loose BM today with a little blood. Pain shot at 3 am. Has not needed any since then. Overall feeling much better. Constitutional: Constitutional: Reports no additional constitutional complaints Cardiovascular: Cardiovascular: Reports no additional cardiovascular complaints Respiratory: Respiratory: Reports no additional respiratory complaints Gastrointestinal: Gastrointestinal: Reports as per HPI Musculoskeletal: Musculoskeletal: Reports no additional musculoskeletal complaints Exam Const: General: comfortable and no acute distress HENMT: Head: normal to inspection Resp: Effort & Inspection: normal respiratory effort Auscultation: clear to auscultation bilaterally Cardio: Rate: regular rate Rhythm: regular rhythm GI: Inspection: normal to inspection GI Palp: Yes Other GI palpation findings present (NON tender ) Auscultation: normal bowel sounds Rectal Exam: deferred Skin: General skin exam: no rashes or lesions noted Neuro: General: patient oriented x3 Speech: normal speech Psych: Mental Status: mental status grossly normal Objective Data Vital Signs Vital Signs: Vital Signs - 24 hr 01/12/21 14:00 01/12/21 20:00 01/12/21 22:00 Temperature 36.7 C 36.3 C L Pulse Rate 101 H 90 Respiratory Rate 16 18 Blood Pressure 116/60 107/57 L Pulse Oximetry 99 95 95 01/13/21 05:41 Temperature 36.2 C L Pulse Rate 79 Respiratory Rate 18 Blood Pressure 119/72 Pulse Oximetry 97 Intake/Output Intake/Output: Intake & Output 01/10/21 01/11/21 01/12/21 01/13/21 23:59 23:59 23:59 23:59 Intake Total 3200 3390 850 Output Total 200 400 Balance 3000 2990 850 Meds/Results Medications: Active Medications Generic Name Dose Route Start Last Admin Trade Name Freq PRN Reason Stop Dose Admin Hydrocodone Bitart/Acetaminophen 1 tab 01/12/21 17:27 01/13/21 03:15 Hydrocodone/Acetaminophen (*Crx) 5-325 Mg Tablet PO 1 tab Q6H PRN Administration Pain Rated 4-10 Dicyclomine HCl 10 mg 01/11/21 20:18 01/13/21 03:15 Dicyclomine Hcl 10 Mg Capsule PO 10 mg Q6H PRN Administration Abdominal Cramping Piperacillin/Tazobactam/Dextrose 3.375 gm in 50 mls @ 100 mls/hr 01/11/21 18:00 01/13/21 12:01 Zosyn 3.375 Gm/D5w 50ml Pm IVPB 100 mls/hr Q6HR FOREIGN Administration Lactated Ringer's 1,000 mls @ 150 mls/hr 01/11/21 13:35 01/13/21 05:32 Lr - Lactated Ringers Iv IV CONT Not Given .Q6H40M FOREIGN Mesalamine 800 mg 01/12/21 13:00 01/13/21 12:03 Mesalamine 400 Mg Delayed Release Capsule PO 800 mg TID FOREIGN Administration Methylprednisolone Sodium Succinate 40 mg 01/12/21 14:00 01/13/21 06:16 Methylprednisolone Sod Succ 40 Mg Vial IV PUSH 40 mg Q8HR FOREIGN Administration Ondansetron HCl 4 mg 01/11/21 13:31 01/11/21 21:10 Ondansetron Inj 4 Mg/2 Ml Vial IV PUSH 4 mg Q4H PRN Administration Nausea Pantoprazole Sodium 40 mg 01/12/21 09:00 01/13/21 08:55 Pantoprazole Sodium Iv 40 Mg Vial IV PUSH 40 mg QAM FOREIGN Administration Radiology Results: ITS Impressions Abdomen/Pelvis CT 01/11/21 13:04 IMPRESSION: 1. Pancolitis with interval worsening. Labs Labs: Laboratory Results - last 24 hr 01/13/21 01/13/21 10:07 10:07 WBC 9.3 RBC 4.08 L Hgb 12.2 L D Hct 36.4 L MCV 89.2 MCH 29.9
[2021-01-13] MEDS: LACTATED RINGERS 1,000 ML 150 ML IV CONT ×2 (13:45→23:19)
[2021-01-13 14:00] VITALS: BP 111/60; PULSE 94; RESP 18; TEMP 36.4; O2SAT 98
[2021-01-13 21:59] VITALS: BP 132/74; PULSE 82; RESP 16; TEMP 36.4; O2SAT 99
[2021-01-14 06:00] VITALS: BP 120/74; PULSE 83; RESP 16; TEMP 37.3; O2SAT 98
[2021-01-14] MEDS: LACTATED RINGERS 1,000 ML 150 ML IV CONT (06:05)
[2021-01-14 07:17] LABS: Hematocrit 34.3 % (42.0-52.0); Hemoglobin 11.5 g/dL (14.0-18.0); Mean Corpuscular HGB Conc 33.5 g/dl (32-36); Mean Corpuscular Hemoglobin 29.7 pg (26-34); Mean Corpuscular Volume 88.6 fl (80-100); Mean Platelet Volume 8.7 fl (7.4-10.4); Platelet Count Result 297 k/mm3 (150-375); Red Blood Count 3.87 M/mm3 (4.6-6.20); Red Cell Distribution Width 12.3 % (11.5-14.5); White Blood Count 10.9 K/mm3 (4.5-10.0)
[2021-01-14 07:29] LABS: Anion Gap 4 mmol/L (8-16); Blood Urea Nitrogen 6 mg/dL (9-20); Calcium 8.4 mg/dL (8.4-10.2); Carbon Dioxide 30 mmol/L (22-30); Chloride 106 mmol/L (98-107); Estimated CRCL calculation 125 ml/min; Estimated Glomerular Filt Rate > 60; Glucose 128 mg/dL (75-110); Sodium 140 mmol/L (137-145)
[2021-01-14] MEDS: PANTOPRAZOLE SODIUM IV 40 MG VIAL IV PUSH (07:58)
[2021-01-14] MEDS: MESALAMINE 400 MG DELAYED RELEASE CAPSULE 800 MG PO (07:58)
[2021-01-14] MEDS: predniSONE 20 MG TABLET 40 MG PO (07:58)
[2021-01-14 08:09] LABS: Band Neutrophils Percent 3 % (0-6); Basophils Percent Manual 1 % (0-1); Eosinophils Absolute Manual 0.21 K/mm3 (0.02-0.5); Eosinophils Percent Manual 2 % (0-4); Lymphocytes Absolute Manual 2.83 K/mm3 (1.1-4.5); Monocytes Absolute Manual 1.09 K/mm3 (0.1-0.90); Monocytes Percent Manual 10 % (3-9); Neutrophils Absolute Manual 6.64 K/mm3 (1.3-6.7); Neutrophils Percent Manual 58 % (46-73); Total Cells Counted 100
[2021-01-14 08:10] LABS: Burr Cells 1+ (NORMAL); Ovalocytes 1+ (NORMAL); Platelet Estimate Adequate (Adequate)
--- NOTE | 2021-01-14 12:13 | PM.DS ---
DS: Admitting Diagnosis Admitting Diagnosis Admitting Diagnosis: Bloody diarrhea DS: Discharge Diagnosis Discharge Diagnosis (1) Pancolitis: Code(s): K51.00 - Ulcerative (chronic) pancolitis without complications Status: Acute Assessment and Plan: Recent treatment with oral ciprofloxacin and Flagyl failed outpatient treatment GI following, Dr. Wynne pt started on mesalasime and steroids. s/p colonoscopy with biopsy, biopsy report not fully reported yet. Pt treated with iv zosyn while in hospital, symptoms are cleared, pt wants to be discharged today. DC on mesalamine and steroids. (2) Dehydration: Code(s): E86.0 - Dehydration Status: Resolved (3) Bloody diarrhea: Code(s): R19.7 - Diarrhea, unspecified Status: Resolved (4) IBS (irritable bowel syndrome): Code(s): K58.9 - Irritable bowel syndrome without diarrhea Status: Resolved Assessment and Plan: IBS v pancolitis Pt is awaiting biopsy result, colonoscopy taken. DS: Summary Hospital Course Hospital Course: IBS v pancolitis. Pt seen and evaluated; reports abdominal pain (10/10) and cramping and blood diarrhea. Pt shows pancolitis on CT. Pt had colonoscopy and biopsy. Biopsy report not fully reported yet. Pt treated with iv zosyn while in hospital, symptoms are cleared, pt wants to be discharged today. DC on mesalamine and steroids. Time Spent with Patient Time attestation: Total time spent providing and/or coordinating discharge services:40 minutes on day of dischrage Exam Narrative: Exam Narrative: GENERAL: The patient is well developed, in mild distress HEART: Regular rate and rhythm without murmur, rubs, or gallops LUNGS: Clear to auscultation bilaterally. no respiratory distress ABDOMEN: Soft, positive bowel sounds, tender abdomen diffusely, no organomegaly. SKIN: No rash, no excessive bruising, petechiae, or purpura. NEUROLOGIC: Cranial nerves II-XII intact, alert and oriented x 3, no gross motor deficits EXTREMITIES: no edema, cyanosis or clubbing DS: Data Data Completed and Pending Pending studies at discharge: Pending at discharge 01/12/21 12:23 Surgical [PTH] Routine Labs on day of discharge: Labs from last 24 hours 01/14/21 01/14/21 06:23 06:23 WBC 10.9 H RBC 3.87 L Hgb 11.5 L Hct 34.3 L MCV 88.6 MCH 29.7 MCHC 33.5 RDW 12.3 Plt Count 297 MPV 8.7 Immature Gran % (Auto) Not Reportable Neut % (Auto) Not Reportable Lymph % (Auto) Not Reportable [place] % (Auto) Not Reportable Eos % (Auto) Not Reportable Baso % (Auto) Not Reportable Lymph # (Auto) Not Reportable [place] # (Auto) Not Reportable Eos # (Auto) Not Reportable Baso # (Auto) Not Reportable Abs Immat Gran (auto) Not Reportable Absolute Neuts (auto) Not Reportable Absolute Nucleated RBC Not Reportable Total Counted 100 Neutrophils % (Manual) 58 Band Neutrophils % 3 Lymphocytes % (Manual) 26.0 Monocytes % (Manual) 10 H Eosinophils % (Manual) 2 Basophils % (Manual) 1 Nucleated RBC % Not Reportable Abs Neuts (Manual) 6.64 Abs Lymphs (Manual) 2.83 Abs Monocytes (Manual) 1.09 H Absolute Eos (Manual) 0.21 Abs Basophils (Manual) 0.10 Platelet Estimate Adequate Ovalocytes 1+ [place] Cells 1+ Sodium 140 Potassium 3.0 L Chloride 106 Carbon Dioxide 30 Anion Gap 4 L BUN 6 L Creatinine 0.80 Estim Creat Clear Calc 125 Estimated GFR > 60 Glucose 128 H Calcium 8.4 Preliminary micro results at discharge 01/11/21 12:17 Blood Culture - Preliminary Blood 01/11/21 12:17 Blood Culture - Preliminary Blood Discharge Plan Discharge Attending physician on discharge: Yola Poe Consulting providers: Ben Wynne ; Emeterio Hensley Sean C. ; Lupe Garza ; Rebeca Nova Discharging Clinician: Yola Poe Anticipated Discharge Date/Time: 01/14/21 12:08 Patient Disposit
[2021-01-14 17:20] LABS: Rotavirus Stool Not Detected
[2021-01-18 14:30] LABS: Norovirus RNA PCR, Stool NOT DETECTED
[2021-01-22 18:12] LABS: Calprotectin, Stool 2350 mcg/g
== END 2021-01-14 13:10 | disposition home or self-care (01) | DRG 387 ==
LOC: ANHED 14:02 → ANH3MEDSUR 14:30
PROVIDERS: Internal Medicine; Internal Medicine Gastroenterology; Nurse Practitioner Adult Health; Admitting Provider Hospitalist; Emergency Provider Emergency Medicine; PCP Family Medicine; Visit Provider Family Medicine
PROC: 0DJD8ZZ Inspection of Lower Intestinal Tract, Via Natural or Artificial Opening Endoscopic (ICD-10-PCS; CPT 45378; principal; 2021-01-12 15:15)
DX: K51.00 Ulcerative (chronic) pancolitis without complications (principal); E86.0 Dehydration; K58.9 Irritable bowel syndrome, unspecified; Z87.891 Personal history of nicotine dependence
CPT/HCPCS: 36415; 74177; 80048; 80053; 83605; 83690; 83993; 85025; 85652; 86140; 87040; 87045; 87046; 87177; 87209; 87324; 87338; 87425; 87427; 87798; 88305; 96361; 96365; 96367; 96375; 96376; 99285; A9270; C9113; G0378; J0131; J2270; J2405; J2543; J2704; J2920; J7030; J7120; J7512; Q9967

== ENCOUNTER 2021-01-21 07:43 | Inpatient (IN) | payer OTHER, SELFPAY ==
[2021-01-21] VITALS (17 sets, daily range): BP systolic 106–137; BP diastolic 59–78; PULSE 106–140; RESP 18–26; TEMP 36.8–37.4; O2SAT 97–100
--- NOTE | ~2021-01-21 | CT_ITS ---
EXAMINATION: CTA chest PE abdomen pel DATE: 01/21/2021 10:25 INDICATION: Dyspnea. Abdominal pain. TECHNIQUE: Computed tomography angiography (CTA) of the chest and abdomen and pelvis was performed wi th 100 mL Omnipaque-350 intravenous contrast timed to evaluate the pulmonary arteries. Coronal maximu m intensity projection 3D-reconstructions were created by the technologist. Automated exposure contro l and iterative reconstruction technique were employed. Exam dose: 1071.57 mGy-cm total exam DLP. COMPARISON: 01/11/2021 CT abdomen pelvis FINDINGS: There is diagnostic contrast enhancement of the pulmonary arteries and no evidence of pulmo nary embolism. No thoracic aortic aneurysm or dissection. No hilar or mediastinal mass lesion or lymphadenopathy. Normal heart size. No pericardial or pleural effusion. Small sliding hiatal hernia. The liver, spleen, pancreas, gallbladder, bile ducts, pancreatic duct, adrenal glands and kidneys are unremarkable. No urinary tract calculus or hydroureteronephrosis. The urinary bladder unremarkable. There is diffuse thickening of the wall of the colon, suggesting nonspecific colitis. Normal appendix. There is a small bowel fluid levels which may be due to mild adynamic ileus or enteritis. No small or large bowel dilatation. No intraperitoneal free air. No pneumatosis. Included skeletal structures are unremarkable. IMPRESSION: Diffuse thickening of the colonic wall is again noted, consistent with nonspecific colit is Small sliding hiatal hernia Reviewed, dictated and finalized at [facility]. Reviewed, dictated and finalized at [facility]. IMPRESSION: Diffuse thickening of the colonic wall is again noted, consistent with nonspecific colitis Small sliding hiatal hernia
--- NOTE | ~2021-01-21 | US_ITS ---
US venous doppler [facility] DATE: 01/21/2021 09:15 INDICATION: Bilateral calf pain TECHNIQUE: Real-time and color flow imaging and Doppler analysis of the veins of both lower extremiti es COMPARISON: None FINDINGS: The greater saphenous veins are patent bilaterally. The common femoral and femoral veins and profunda femoral veins are patent. There is thrombus within the right and left popliteal veins. Thrombosis is also noted involving right posterior tibial and peroneal and left peroneal veins as well as bilateral soleal veins. IMPRESSION: Bilateral deep venous thrombosis of the lower extremities Reviewed, dictated and finalized at [facility]. Reviewed, dictated and finalized at [facility].
[2021-01-21] MEDS: MORPHINE SULFATE (*CRX) 2 MG/ML INJ IV PUSH (08:30)
[2021-01-21] MEDS: SODIUM CHLORIDE 0.9% IV 1,000 ML 999 ML IV CONT ×2 (08:31→11:55)
[2021-01-21 08:47] LABS: Hematocrit 32.6 % (42.0-52.0); Hemoglobin 11.2 g/dL (14.0-18.0); Mean Corpuscular HGB Conc 34.4 g/dl (32-36); Mean Corpuscular Volume 87.4 fl (80-100); Mean Platelet Volume 8.6 fl (7.4-10.4); Platelet Count Result 295 k/mm3 (150-375); Red Blood Count 3.73 M/mm3 (4.6-6.20); Red Cell Distribution Width 12.4 % (11.5-14.5)
--- NOTE | 2021-01-21 08:53 | PC.NURSE ---
Pt to US via stretcher.
[2021-01-21 09:05] LABS: Alanine Aminotransferase 12 U/L (4-50); Albumin Level 3.1 g/dL (3.5-5.1); Alkaline Phosphatase 59 U/L (38-126); Anion Gap 5 mmol/L (8-16); Aspartate Amino Transferase 19 U/L (17-59); Bilirubin,Total 0.2 mg/dL (0.2-1.3); Blood Urea Nitrogen 10 mg/dL (9-20); Calcium 8.6 mg/dL (8.4-10.2); Carbon Dioxide 30 mmol/L (22-30); Chloride 101 mmol/L (98-107); Estimated CRCL calculation 125 ml/min; Estimated Glomerular Filt Rate > 60; Glucose 133 mg/dL (75-110); Potassium 3.1 mmol/L (3.4-5.0); Sodium 136 mmol/L (137-145)
[2021-01-21 09:08] LABS: Magnesium 1.9 mg/dL (1.6-2.3)
[2021-01-21 09:34] LABS: Band Neutrophils Percent 11 % (0-6); Lymphocytes Absolute Manual 4.94 K/mm3 (1.1-4.5); Monocytes Absolute Manual 2.66 K/mm3 (0.1-0.90); Monocytes Percent Manual 14 % (3-9); Neutrophils Percent Manual 49 % (46-73); Platelet Estimate Adequate (Adequate); Total Cells Counted 100
[2021-01-21] MEDS: POTASSIUM CHLORIDE 20 MEQ TABLET 40 MEQ PO (09:41)
[2021-01-21] MEDS: HYDROmorphone HCL INJ (*CRX) 1 MG/ML SYR 0.5 MG IV PUSH ×5 (09:46→23:31)
[2021-01-21 10:02] LABS: Creatine Kinase 77 U/L (55-170)
[2021-01-21 10:37] LABS: Lactic Acid Reflex 3.3 mmol/L (0.7-2.1)
[2021-01-21] MEDS: HEPARIN SODIUM 5,000 UNITS/ML VIAL 7500 UNITS IV PUSH ×2 (10:41→17:32)
[2021-01-21] MEDS: HEPARIN SOD/D5W 100 UNITS/ML 25,000 UNITS/250 ML BAG 15 UNITS IV CONT (10:42)
--- NOTE | 2021-01-21 11:16 | ED.GENADULT ---
HPI - General Adult General Chief complaint: Extremity Injury, Lower Stated complaint: CANT WALK Time Seen by Provider: 01/21/21 07:49 Source: RN notes reviewed History of Present Illness HPI narrative: Patient presents emergency department from home for bilateral calf pain. Patient states he was recently admitted to the hospital for pancolitis and seen by GI. At that time he was discharged with steroids is felt to be more ulcerative colitis after a biopsy was performed. Patient states that approximately 4 days ago he began to have increased pain in his lower legs to the point where he is unable to stand on them secondary to pain in the bilateral calves he denies any trauma or injury denies any weakness in the legs denies any fevers or chills chest pain shortness of breath abdominal pain. He states that he has developed diarrhea with blood in it again starting last night Related Data Allergies Allergy/AdvReac Type Severity Reaction Status Date / Time diphenhydramine AdvReac Drowsy Verified 01/21/21 07:56 [From Benadryl Allergy] Review of Systems Review of Systems: Narrative: Gen.: Denies fevers or chills Eyes: Denies eye pain or visual change ENT: Denies congestion Respiratory: Denies shortness of breath or cough CV: Denies chest pain or palpitations GI: Denies abdominal pain nausea, emesis reports diarrhea with blood in stool Musculoskeletal: Left pain Neuro: Denies numbness, tingling, weakness or focal weakness Skin: Denies rash Except as documented, all other systems reviewed and negative PMF Past Medical History Medical History BMI 26.0-26.9,adult BMI 28.0-28.9,adult Tobacco abuse Family History Family History Father Heart disease Mother Drug abuse Substance abuse Alcohol abuse Sibling Cerebral palsy Other Depression Diabetes mellitus Hypertension Social History Social History Smoking packs per day: 0.75 Smoking cigarettes per day: 15.0 Years smoked: 20 Smoking pack-years: 15.00 Smoking status: Former smoker Tobacco type: cigarettes Alcohol intake: never Substance use: never Substance use type: marijuana 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 CARDIOVASCULAR: Tachycardic and regular without murmurs rubs or gallops. ABDOMINAL: Soft, nontender, nondistended, no rebound or guarding MUSCULOSKELETAl: Moves all extremities. No clubbing, cyanosis bilateral calves are tender and swollen. bilateral dorsalis pedis pulse 2+ NEURO: Awake and alert. Following commands, speech normal, no focal deficits SKIN:: Warm, dry. No rashes lesions or abrasions PSYCHIATRIC: Normal affect/mood, Course Course Emergency Course: Reviewed old records Discussed with Dr. Munoz presentation work-up agrees with admission at this time. Will start on heparin drip. With patient's tachycardia will obtain CTA chest to evaluate for possible PE as well as abdomen pelvis for possible continued pancolitis. Patient continues to deny any abdominal pain Called discussed Dr. Sánchez for GI presentation work-up agrees with consult Discussed with patient and family results of workup and diagnosis. Discussed need for admission. Patient and family understand and agree to current treatment plan Vital Signs Vital signs: Vital Signs Temperature 98.2 F 01/21/21 07:45 Pulse Rate 120 H 01/21/21 07:45 Respiratory Rate 20 01/21/21 07:45 Blood Pressure 126/61 01/21/21 07:45 Pulse Oximet
--- NOTE | 2021-01-21 12:33 | ADMGEN ---
This patient, Bola Shepherd, was admitted to IMU Room 202-01. Patient/family oriented to hospital policies and general routines including ID bracelet, bed and alarms, visiting hours, pain management, procedures, bathroom and other care routines, personal items, smoking policy, room service/diet, and visiting hours. Information on how to activate the Rapid Response Team has been discussed. Patient/Family are encouraged to report perceived risks to care and to ask questions if they do not understand what they are told or what they should do.
[2021-01-21] MEDS: SODIUM CHLORIDE 0.9% IV 1,000 ML 125 ML IV CONT (13:08)
[2021-01-21 13:19] LABS: Reflex Lactic Acid Yes or No Add Lactic
[2021-01-21 13:59] LABS: Hematocrit 28.2 % (42.0-52.0); Hemoglobin 9.3 g/dL (14.0-18.0)
[2021-01-21 14:09] LABS: Lactic Acid 0.7 mmol/L (0.7-2.1)
--- NOTE | 2021-01-21 16:00 | PM.IMHP ---
H&P: HPI History of Present Illness Date/Time: 01/21/21 16:00 Chief Complaint: Bilateral calf pain. Narrative: This is a 40-year-old male recently admitted to the hospital with velazquez colitis who presented to the emergency department earlier this morning via private vehicle from home with complaints of bilateral calf pain. He reports ongoing issues with abdominal pain and diarrhea since the beginning of December and he has been on several antibiotics for pancolitis that has been evident on CT dating back to 01/04/2021. In fact he was admitted to the hospitalist service on 01/11/2021 with dehydration and pancolitis. A colonoscopy on 01/12/[address] Wynne showed of ulcerative chronic pancolitis and multiple biopsies were taken which histologically showed diffuse chronic active colitis with crypt abscesses. He was started on mesalamine and steroids and was able to be discharged on 01/14/2021. Initially he felt a bit better however over the last couple of days he has noticed an increase in his stools and reports that they are now darker in color. This morning there was a small amount of bright red blood admixed with his stool. Additionally he began having discomfort in his calves about 4 days ago and his fiancee has been massaging them as they are cramping frequently. Today he was unable to stand up due to severe pain in both calves and he came in for evaluation. He was found to have bilateral lower extremity DVTs and is being admitted in this setting. At the time my evaluation he rates the pain in his calves as 9/10. He continues to have some mild lower abdominal cramping. No fever, chills, sweats, or vomiting. He is a bit nauseated after receiving Dilaudid. No fever but he has had some sweats. Review of Systems Review of Systems: Narrative: Twelve systems were reviewed with pertinent positives and negatives as per HPI. Weight has remained stable. No personal or family history of colon cancer. He denies vomiting and hematemesis. No fever. No chest pain, pleuritic pain, or palpitations. No shortness of breath. No prior history of venous thromboembolism. Except as documented, all other systems were reviewed and are negative. [facility] Past Medical History Medical History (Updated 01/21/21 @ 18:31 by Peggy Genoa PA-C) Pancolitis Colon biopsies obtained 01/12/2021 show diffuse chronic active colitis with crypt abscesses. Tobacco abuse Surgical History Surgical History (Updated 01/21/21 @ 18:29 by Peggy Genao PA-C) History of colonoscopy (01/12/21) Family History Family History Father Heart disease Mother Drug abuse Substance abuse Alcohol abuse Sibling Cerebral palsy Other Depression Diabetes mellitus Hypertension Patient unsure of family history Social History Social History (Updated 01/21/21 @ 18:29 by Peggy Genao PA-C) Social History: Surrogate decision maker: Noam Shepherd (father) and Haylee (fiance). Code status: Full code. Smoking packs per day: 0.5 Smoking cigarettes per day: 10.0 Years smoked: 20 Smoking pack-years: 10.00 Smoking status: Former smoker Tobacco type: cigarettes Smoking end date: 01/21/20 Alcohol intake: never Substance use: never Substance use type: marijuana Additional living arrangements comments: Resides in [place] with his cruz. 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 Gender identity (if verbalized by the patient): Male Spiritual care concerns: No Meds Home Medications and Allergies Home Medications Medication Instructions Recorded Confirmed Type tramadol 50 mg tablet 50 mg PO Q8H PRN #60 tablet 01/08/21 01/21/21 Rx dicyclomine 10 mg PO Q6H PRN #30 cap 01/14/21 01/21/21 Rx prednisone 40 mg PO DAILY@0800 #10 tablet 01/14/21 01/21/21 Rx pantoprazole 20 mg tablet,delayed 20 mg PO QAM #30 tablet 01/15/21 01/21/21 Rx release ritter
[2021-01-21] MEDS: ONDANSETRON INJ 4 MG/2 ML VIAL IV PUSH ×2 (17:05→20:17)
[2021-01-21 17:13] LABS: Partial Thromboplastin Time 46.9 SECONDS (22.3-36.8)
[2021-01-21 19:54] LABS: Hematocrit 27.8 % (42.0-52.0); Hemoglobin 9.4 g/dL (14.0-18.0)
[2021-01-21] MEDS: SODIUM CHLORIDE 0.9% IV 1,000 ML 80 ML IV CONT (20:30)
[2021-01-21 23:51] LABS: Partial Thromboplastin Time 104.2 SECONDS (22.3-36.8)
[2021-01-22] VITALS (14 sets, daily range): BP systolic 99–130; BP diastolic 55–78; PULSE 101–123; RESP 16–22; TEMP 36.5–37.1; O2SAT 94–98
[2021-01-22] MEDS: HEPARIN SOD/D5W 100 UNITS/ML 25,000 UNITS/250 ML BAG 19 UNITS IV CONT ×2 (00:59→14:31)
[2021-01-22] MEDS: HYDROmorphone HCL INJ (*CRX) 1 MG/ML SYR 0.5 MG IV PUSH ×8 (02:40→23:44)
[2021-01-22] MEDS: ONDANSETRON INJ 4 MG/2 ML VIAL IV PUSH (02:40)
[2021-01-22 05:47] LABS: Hematocrit 27.1 % (42.0-52.0); Hemoglobin 9.2 g/dL (14.0-18.0); Mean Corpuscular HGB Conc 33.9 g/dl (32-36); Mean Corpuscular Hemoglobin 30.5 pg (26-34); Mean Corpuscular Volume 89.7 fl (80-100); Mean Platelet Volume 8.6 fl (7.4-10.4); Platelet Count Result 269 k/mm3 (150-375); Red Blood Count 3.02 M/mm3 (4.6-6.20); Red Cell Distribution Width 12.7 % (11.5-14.5)
[2021-01-22 05:59] LABS: Partial Thromboplastin Time 104.6 SECONDS (22.3-36.8)
[2021-01-22 06:24] LABS: Band Neutrophils Percent 3 % (0-6); Eosinophils Absolute Manual 0.23 K/mm3 (0.02-0.5); Eosinophils Percent Manual 1 % (0-4); Lymphocytes Absolute Manual 4.37 K/mm3 (1.1-4.5); Monocytes Percent Manual 10 % (3-9); Neutrophils Percent Manual 67 % (46-73); Total Cells Counted 100
[2021-01-22 06:25] LABS: Atypical Lymphocytes Present; Platelet Estimate Adequate (Adequate)
[2021-01-22 06:30] LABS: Anion Gap 3 mmol/L (8-16); Blood Urea Nitrogen 7 mg/dL (9-20); Calcium 7.8 mg/dL (8.4-10.2); Carbon Dioxide 27 mmol/L (22-30); Chloride 105 mmol/L (98-107); Estimated CRCL calculation 112 ml/min; Estimated Glomerular Filt Rate > 60; Glucose 121 mg/dL (75-110); Magnesium 1.8 mg/dL (1.6-2.3); Potassium 2.9 mmol/L (3.4-5.0); Sodium 135 mmol/L (137-145)
[2021-01-22] MEDS: PANTOPRAZOLE SOD SESQUIHYDRATE 20 MG TAB PO (08:33)
[2021-01-22] MEDS: MAGNESIUM SULF 2 GM/WATER 50ML 2 GM/50 ML BAG IVPB (08:45)
--- NOTE | 2021-01-22 09:06 | WPDGICN ---
Assessment and Plan Assessment and plan (1) Ulcerative colitis: Code(s): K51.90 - Ulcerative colitis, unspecified, without complications Status: Acute Assessment and Plan: Patient has ulcerative colitis identified by recent colonoscopy. Plan is continue steroids. Mesalamine will be added to this region. Patient will ultimately newly need long-term follow up in the office and medications may need to be adjusted. Biologic agents remain a possibility of steroids fail to help his disease. Currently appears to be slowly improving having recently been started on steroids. (2) DVT (deep venous thrombosis): Code(s): I82.409 - Acute embolism and thrombosis of unspecified deep veins of unspecified lower extremity Status: Acute Assessment and Plan: DVT identified in the ER by ultrasound. Agree that anticoagulation will be required. Will need to monitor hemoglobin long this is accomplished. (3) Anemia: Code(s): D64.9 - Anemia, unspecified Status: Acute Assessment and Plan: Anemia identified and by lab work. Likely related to blood loss related to his colitis. Would continue to monitor this conservatively and only transfuse if necessary. (4) Leukocytosis: Code(s): D72.829 - Elevated white blood cell count, unspecified Status: Acute Assessment and Plan: Leukocytosis identified in the ER. Most likely related to steroid use. Patient is empirically been started on antibiotics for possible infectious colitis an 0 7-10 day course of this appears prudent at this time per GI Consult Note Consult date/time: 01/22/21 09:06 HPI: Bola Shepherd is a 40 year old male seen in evaluation at the request of the emergency room. Patient has a history of bloody diarrhea for 1-2 months. He went to the emergency room several weeks ago was found to have pancolitis. Patient initially given a trial of broad-spectrum antibiotics with no change in symptoms. He was admitted to the hospital with bloody diarrhea and colonoscopy was performed. This confirmed ulcerative pancolitis. Patient has been on steroids with mesalamine for 1 week. He states the diarrhea has slowed but continues to occur throughout the day. He continues to have small amount of blood in stools. Over the last 2-3 days has had lower extremity leg pain. This became so severe he could not walk. He went to the emergency room for ultrasound confirmed bilateral lower extremity DVTs. Patient's family history is noncontributory. He denies recent travel. There is no family history of clotting disorders nor inflammatory bowel disease. Patient was admitted for further therapy anticoagulation. He has been on steroids and leukocytosis was identified in the ER. Review of Systems Review of Systems: All systems reviewed & are unremarkable except as noted in HPI and below PMFSH Past Medical History Medical History (Updated 01/22/21 @ 09:09 by Ben Wynne MD) Pancolitis Colon biopsies obtained 01/12/2021 show diffuse chronic active colitis with crypt abscesses. Tobacco abuse Surgical History Surgical History (Updated 01/21/21 @ 18:29 by Peggy Genao PA-C) History of colonoscopy (01/12/21) Family History Family History Father Heart disease Mother Drug abuse Substance abuse Alcohol abuse Sibling Cerebral palsy Other Depression Diabetes mellitus Hypertension Patient unsure of family history Social History Social History (Updated 01/21/21 @ 18:29 by Peggy Genao PA-C) Social History: Surrogate decision maker: Noam Shepherd (father) and Haylee (fiance). Code status: Full code. Smoking packs per day: 0.5 Smoking cigarettes per day: 10.0 Years smoked: 20 Smoking pack-years: 10.00 Smoking status: Former smoker Tobacco type: cigarettes Smoking end date: 01/21/20 Alcohol intake: never Substance use: n
[2021-01-22] MEDS: SODIUM CHLORIDE 0.9% IV 1,000 ML 80 ML IV CONT ×2 (10:00→23:43)
--- NOTE | 2021-01-22 10:20 | PM.IMPN ---
Progress Note: A&P Assessment and Plan (1) Acute deep vein thrombosis (DVT) of both lower extremities: Code(s): I82.403 - Acute embolism and thrombosis of unspecified deep veins of lower extremity, bilateral Status: Acute Assessment and Plan: Doppler of the bilateral LE showing thrombus within the right and left popliteal veins. Thrombosis is also noted involving right posterior tibial and peroneal and left peroneal veins as well as bilateral soleal veins. CTA chest negative for PE. He has been started on Heparin drip due to his ongoing rectal bleeding. Hgb did drop into the 9 range but stable. Will consult case management on options for oral anticoagulation. (2) Leukocytosis: Code(s): D72.829 - Elevated white blood cell count, unspecified Status: Acute Assessment and Plan: WBC 11K at time of discharge but 19K on admission and has climbed to 23K. Possibly related to the steroids. Consider infectious etiology. CDiff negative last admission but will repeat. Contineu to follow. (3) Anemia: Code(s): D64.9 - Anemia, unspecified Status: Acute Assessment and Plan: Hgb 16 at time of last admission and dropped to 11.5. Hgb here 11.2 but dropped to the 9 range with the IV fluids. Suspect acute blood loss from his rectal bleeding. Add iron. Monitor HH. Transfuse as needed. (4) Ulcerative colitis: Code(s): K51.90 - Ulcerative colitis, unspecified, without complications Status: Acute Assessment and Plan: Patient seen here on 01/11 for rectal bleeding and colonoscopy showing UC. Biopsy performed with pathology showing diffuse chronic active colitis with crypt abscess. CT A/P done here showing difuse thickening of the colon. Zosyn started. GI consult ordered. Continue mesalamine and Prednisone. (5) Tobacco abuse: Code(s): Z72.0 - Tobacco use Status: Acute Assessment and Plan: The patient was educated about the benefits of smoking cessation. (6) Hypokalemia: Code(s): E87.6 - Hypokalemia Status: Acute Assessment and Plan: Potassium low at 3.1 on admission probably related to his diarrhea. This was replaced. Potassium this morning is down to 2.9 and this was replaced again. Magnesium 1.8 and this will be replaced as well. Continue to follow. Continue to replace as needed. Subjective Date/time seen: 01/22/21 10:20 Interval history: 40yo male recently hospitalized for rectal bleeding and found to have UC who returns after being home for 5 days with calf pain and found to have bilateral LE DVT. Patient still having 10 10 calf pain bilaterally. Right worse than left. Makes it difficult to walk. Also having abdominal cramping pain. Still having diarrhea with 1-2 stools every hour while awake. Stool is dark red in color. He states this is no significant change from when he was here 5 days ago. Eating okay. Exam Narrative: Exam Narrative: AF 98.7 101/78 115 16 96% ra Gen - NARD lying semi-recumbent in bed Chest - CTA bilaterally, nml RR CV - RRR S1/S2; Tele showing sinus tachycardia Abd - Soft, diffusely tender. +BS. Voluntary guarding Ext - No pedal edema. 2+ DP bilaterally. +Homans bilaterally Neuro - Alert and oriented. Nonfocal exam. Psych - Nml mood and affect Skin - Warm and dry Objective Data Vital Signs Vital Signs: Vital Signs - 24 hr 01/21/21 10:45 01/21/21 11:30 01/21/21 11:45 Temperature Pulse Rate 116 H 113 H 114 H Respiratory Rate 19 25 H 21 H Blood Pressure 106/65 113/66 110/67 Pulse Oximetry 98 01/21/21 12:28 01/21/21 14:00 01/21/21 16:00 Temperature 98.4 F 99.4 F Pulse Rate 107 H 106 H 118 H Respiratory Rate 20 18 Blood Pressure 118/59 L 121/67 Pulse Oximetry 100 97 01/21/21 18:00 01/21/21 20:00 01/21/21 22:00 Temperature 98.2 F Pulse Rate 117 H 122 H 122 H Respiratory Rate 18 Blood Pressure 123/65 Pulse Oximetry 97
[2021-01-22] MEDS: FERROUS SULFATE 324 MG TABLET PO ×2 (12:37→17:35)
[2021-01-22] MEDS: MESALAMINE 400 MG DELAYED RELEASE CAPSULE 800 MG PO ×2 (13:35→17:35)
[2021-01-23] VITALS (12 sets, daily range): BP systolic 127–139; BP diastolic 68–82; PULSE 80–114; RESP 14–20; TEMP 36.6–37.6; O2SAT 97–99
[2021-01-23] MEDS: HYDROmorphone HCL INJ (*CRX) 1 MG/ML SYR 0.5 MG IV PUSH ×6 (02:35→18:16)
[2021-01-23] MEDS: HEPARIN SOD/D5W 100 UNITS/ML 25,000 UNITS/250 ML BAG 19 UNITS IV CONT ×2 (03:44→16:52)
[2021-01-23 05:29] LABS: Hematocrit 28.4 % (42.0-52.0); Hemoglobin 9.4 g/dL (14.0-18.0); Mean Corpuscular HGB Conc 33.1 g/dl (32-36); Mean Corpuscular Hemoglobin 29.7 pg (26-34); Mean Corpuscular Volume 89.6 fl (80-100); Mean Platelet Volume 8.5 fl (7.4-10.4); Platelet Count Result 286 k/mm3 (150-375); Red Blood Count 3.17 M/mm3 (4.6-6.20); Red Cell Distribution Width 12.6 % (11.5-14.5); White Blood Count 18.7 K/mm3 (4.5-10.0)
[2021-01-23 05:34] LABS: Partial Thromboplastin Time 85.7 SECONDS (22.3-36.8)
[2021-01-23 05:39] LABS: Anion Gap 2 mmol/L (8-16); Blood Urea Nitrogen 5 mg/dL (9-20); Calcium 7.6 mg/dL (8.4-10.2); Carbon Dioxide 29 mmol/L (22-30); Chloride 103 mmol/L (98-107); Estimated CRCL calculation 112 ml/min; Estimated Glomerular Filt Rate > 60; Glucose 119 mg/dL (75-110); Magnesium 2.1 mg/dL (1.6-2.3); Potassium 2.9 mmol/L (3.4-5.0); Sodium 134 mmol/L (137-145)
[2021-01-23 05:55] LABS: Band Neutrophils Percent 11 % (0-6); Lymphocytes Absolute Manual 0.74 K/mm3 (1.1-4.5); Monocytes Absolute Manual 1.87 K/mm3 (0.1-0.90); Monocytes Percent Manual 10 % (3-9); Neutrophils Absolute Manual 16.08 K/mm3 (1.3-6.7); Neutrophils Percent Manual 75 % (46-73); Platelet Estimate Adequate (Adequate); Total Cells Counted 100
[2021-01-23 06:04] LABS: CRP 35.7 mg/dL (<1.0)
[2021-01-23 06:25] LABS: Procalcitonin 0.2 ng/mL
[2021-01-23] MEDS: DICYCLOMINE HCL 10 MG CAPSULE PO ×3 (08:26→23:47)
[2021-01-23] MEDS: PANTOPRAZOLE SOD SESQUIHYDRATE 20 MG TAB PO (08:26)
[2021-01-23] MEDS: MESALAMINE 400 MG DELAYED RELEASE CAPSULE 800 MG PO ×3 (08:26→16:54)
[2021-01-23] MEDS: predniSONE 20 MG TABLET 40 MG PO (08:26)
[2021-01-23] MEDS: FERROUS SULFATE 324 MG TABLET PO ×2 (08:26→16:54)
--- NOTE | 2021-01-23 08:58 | WPDGIPROGNO ---
Progress Note: A&P Assessment and Plan (1) Ulcerative colitis: Code(s): K51.90 - Ulcerative colitis, unspecified, without complications Status: Acute Assessment and Plan: Patient with ulcerative pancolitis. Cultures of the stool negative to date. Plan to continue oral steroids. Supplement this with mesalamine. He may benefit from Lomotil briefly. Plan to continue supportive care and IV fluid rehydration. Long-term naranjo he may need biologic agent if diarrhea persists long-term. (2) Acute deep vein thrombosis (DVT) of both lower extremities: Code(s): I82.403 - Acute embolism and thrombosis of unspecified deep veins of lower extremity, bilateral Status: Acute Assessment and Plan: Patient with bilateral DVTs. Anticoagulation anticipated for the immediate future. This we will need to watch his GI bleeding with this. Continue monitor hemoglobin transfuse if necessary. Hopefully colitis will continue improve so that no additional therapy will be required. (3) Anemia: Code(s): D64.9 - Anemia, unspecified Status: Acute Assessment and Plan: Anemia likely on the basis of GI bleeding from his ulcerative colitis. Continue monitor hemoglobin closely at this point. Transfusion has not been required at this point. (4) Leukocytosis: Code(s): D72.829 - Elevated white blood cell count, unspecified Status: Acute Assessment and Plan: Leukocytosis most likely secondary to steroid use. We will continue to monitor. Cultures have been obtained to exclude infectious etiology. Patient is given a broad spectrum antibiotic for possible infectious colitis. Although this may be extra is no infection has been identified. Subjective Date/time seen: 01/23/21 08:58 Patient continues to did have diarrhea stools. He states less frequent than 1-2 weeks ago. Continues to have a very small amount of blood noted in it. Poor control noted on occasion. He denies a fever. Denies abdominal pain. Uses a bedside commode. Review of Systems Review of Systems: All systems reviewed & are unremarkable except as noted in HPI and below Exam Narrative: Exam Narrative: Physical exam reveals patient to be alert. Vital signs stable. HEENT exam unremarkable he is anicteric. Lungs are clear to auscultation and percussion. Heart is without murmur. Abdomen bowel sounds present soft nontender. Extremities with mild tenderness to bilateral cats. Appear minimally swollen. Objective Data Vital Signs Vital Signs: Vital Signs - 24 hr 01/22/21 10:00 01/22/21 11:07 01/22/21 12:00 Temperature 98.2 F Pulse Rate 115 H 111 H 112 H Respiratory Rate 16 16 Blood Pressure 120/69 Pulse Oximetry 94 94 01/22/21 14:00 01/22/21 16:00 01/22/21 18:00 Temperature 98.5 F Pulse Rate 112 H 113 H 123 H Respiratory Rate 18 Blood Pressure 107/66 Pulse Oximetry 98 01/22/21 19:48 01/22/21 20:00 01/22/21 22:00 Temperature 98.0 F Pulse Rate 115 H 112 H 112 H Respiratory Rate 18 18 Blood Pressure 103/63 Pulse Oximetry 97 97 01/22/21 23:30 01/23/21 00:00 01/23/21 02:00 Temperature 97.7 F Pulse Rate 111 H 112 H 114 H Respiratory Rate 18 18 Blood Pressure 130/64 Pulse Oximetry 98 98 01/23/21 04:00 01/23/21 05:58 01/23/21 08:00 Temperature 97.9 F 99.3 F Pulse Rate 80 112 H 114 H Respiratory Rate 20 16 Blood Pressure 131/76 127/71 Pulse Oximetry 97 99 Intake/Output Intake/Output: Intake & Output 01/20/21 01/21/21 01/22/21 01/23/21 23:59 23:59 23:59 23:59 Intake Total 2050 4160 650 Output Total 400 1375 650 Balance 1650 2785 0 Meds/Results Medications: Active Medications Generic Name Dose Route Start Last Admin Trade Name Freq PRN Reason Stop Dose Admin Dicyclomine HCl 10 mg 01/21/21 18:39 01/23/21 08:26 Dicyclomine Hcl 10 Mg Capsule PO 10 mg Q6H PRN Administration Abdominal Cramping Diphenoxylate HCl/Atropi
[2021-01-23] MEDS: DIPHENOXYLATE/ATROPINE (*CRX) 2.5 MG TABLET 1 TABLET PO (13:45)
--- NOTE | 2021-01-23 14:28 | PM.IMPN ---
Progress Note: A&P Assessment and Plan (1) Acute deep vein thrombosis (DVT) of both lower extremities: Code(s): I82.403 - Acute embolism and thrombosis of unspecified deep veins of lower extremity, bilateral Status: Acute Assessment and Plan: Doppler of the bilateral LE showing thrombus within the right and left popliteal veins. Thrombosis is also noted involving right posterior tibial and peroneal and left peroneal veins as well as bilateral soleal veins. CTA chest negative for PE. He has been started on Heparin drip due to his ongoing rectal bleeding. Hgb did drop into the 9 range but stable. Case management to determine pricing for NOACs. Stop IV fluids. Increase activity. PT/OT (2) Leukocytosis: Code(s): D72.829 - Elevated white blood cell count, unspecified Status: Acute Assessment and Plan: WBC 11K at time of discharge but 19K on admission and has climbed to 23K. Possibly related to the steroids. Consider infectious etiology. CDiff negative. BCx NGTD. WBC better at 18.7K but now with mild bandemia. CRP very high from the UC but procalc is negative making occult infection less likely. Continue to follow. Contnue Zosyn for now (3) Anemia: Code(s): D64.9 - Anemia, unspecified Status: Acute Assessment and Plan: Hgb 16 at time of last admission and dropped to 11.5. Hgb here 11.2 but dropped to the 9 range with the IV fluids. Suspect acute blood loss from his rectal bleeding. Still having hematochezia. Iron added. Continue to monitor HH. Transfuse as needed. (4) Ulcerative colitis: Code(s): K51.90 - Ulcerative colitis, unspecified, without complications Status: Acute Assessment and Plan: Patient seen here on 01/11 for rectal bleeding and colonoscopy showing UC. Biopsy performed with pathology showing diffuse chronic active colitis with crypt abscess. CT A/P done this admission as well showing diffuse thickening of the colon. Zosyn started. GI folowing. WBC trending down. Continue mesalamine and Prednisone. Lomotil added to slow diarrhea down. (5) Tobacco abuse: Code(s): Z72.0 - Tobacco use Status: Acute Assessment and Plan: The patient was educated about the benefits of smoking cessation. (6) Hypokalemia: Code(s): E87.6 - Hypokalemia Status: Acute Assessment and Plan: Potassium low at 3.1 on admission probably related to his diarrhea. This was replaced. Potassium this morning is again dropped to 2.9 and this was replaced again. Magnesium 2.1. Continue to follow. Continue to replace as needed. Subjective Date/time seen: 01/23/21 14:28 Interval history: 40yo male recently hospitalized for rectal bleeding and found to have UC who returns after being home for 5 days with calf pain and found to have bilateral LE DVT. Pateitn still having significant right leg pain. Minimal left leg pain. Pain mostly in the right calf but pain even when examiner palpating the right PT. Also with stomach cramps. +stool incontinence overnight. Stil having hematochezia. Exam Narrative: Exam Narrative: AF 99.6 128/68 98 14 99% ra Gen - NARD Chest -few basilar inspiratory crackles that improve with deep inspiration. Normal respiratory rate CV - RRR S1/S2; Tele showing low grade sinus tachycardia Abd - Soft, diffusely tender but improved from yesterday. +BS. Ext - trace bialteral pedal edema. 2+ DP bilaterally. +Homans bilaterally R>>L. Psych - Nml mood, odd affect Skin - Warm and dry Objective Data Vital Signs Vital Signs: Vital Signs - 24 hr 01/22/21 16:00 01/22/21 18:00 01/22/21 19:48 Temperature 98.5 F 98.0 F Pulse Rate 113 H 123 H 115 H Respiratory Rate 18 18 Blood Pressure 107/66 103/63 Pulse Oximetry 98 97 01/22/21 20:00 01/22/21 22:00 01/22/21 23:30 Temperature 97.7 F Pulse Rate 112 H 112 H 111 H Respiratory Rate 18 18 Blood Pressure 130/64 Pu
--- NOTE | 2021-01-23 18:44 | PC.NURSE ---
This patient, Bola Shepherd, was transferred to [facility] on 01/23/21 at 1844. Personal belongings sent with patient. Report given to MYA Wood. Appropriate documentation sent with patient.
[2021-01-23 18:47] LABS: Potassium 3.4 mmol/L (3.4-5.0)
--- NOTE | 2021-01-23 19:00 | PC.NURSE ---
This patient, Bola Shepherd, was received from IMU on 01/23/21 at 1900. Patient/family oriented to unit policies and routines
[2021-01-23] MEDS: APIXABAN 5 MG TABLET 10 MG PO (21:09)
[2021-01-24] MEDS: HYDROmorphone HCL INJ (*CRX) 1 MG/ML SYR 0.5 MG IV PUSH ×5 (05:52→23:16)
[2021-01-24 06:09] LABS: Basophils Percent Auto 0.3 % (0.2-1.2); Eosinophils Percent Auto 0.1 % (0-4.4); Hematocrit 27.4 % (42.0-52.0); Hemoglobin 9.4 g/dL (14.0-18.0); Immature Granulocyte Absolute 0.28 K/mm3 (0.00-0.031); Immature Granulocyte Percent A 1.9 % (0-0.5); Lymphocytes Absolute Auto 1.37 K/mm3 (0.9-3.2); Lymphocytes Percent Auto 9.5 % (18.3-44.2); Mean Corpuscular HGB Conc 34.3 g/dl (32-36); Mean Corpuscular Hemoglobin 29.8 pg (26-34); Mean Platelet Volume 8.5 fl (7.4-10.4); Monocytes Percent Auto 20.5 % (2.6-8.5); Neutrophils Absolute Auto 9.8 K/mm3 (1.3-6.7); Neutrophils Percent Auto 67.7 % (45.5-73.1); Platelet Count Result 310 k/mm3 (150-375); Red Blood Count 3.15 M/mm3 (4.6-6.20); Red Cell Distribution Width 12.5 % (11.5-14.5); White Blood Count 14.4 K/mm3 (4.5-10.0)
[2021-01-24 06:20] LABS: Alanine Aminotransferase 9 U/L (4-50); Albumin Level 2.7 g/dL (3.5-5.1); Alkaline Phosphatase 55 U/L (38-126); Anion Gap 4 mmol/L (8-16); Aspartate Amino Transferase 17 U/L (17-59); Bilirubin,Total 0.4 mg/dL (0.2-1.3); Blood Urea Nitrogen 5 mg/dL (9-20); Calcium 8.3 mg/dL (8.4-10.2); Carbon Dioxide 28 mmol/L (22-30); Chloride 102 mmol/L (98-107); Estimated CRCL calculation 142 ml/min; Estimated Glomerular Filt Rate > 60; Glucose 126 mg/dL (75-110); Sodium 134 mmol/L (137-145)
[2021-01-24] MEDS: PANTOPRAZOLE SOD SESQUIHYDRATE 20 MG TAB PO (08:36)
[2021-01-24] MEDS: APIXABAN 5 MG TABLET 10 MG PO ×2 (08:36→20:47)
[2021-01-24] MEDS: FERROUS SULFATE 324 MG TABLET PO ×2 (08:36→17:57)
[2021-01-24] MEDS: predniSONE 20 MG TABLET 40 MG PO (08:36)
[2021-01-24] MEDS: MESALAMINE 400 MG DELAYED RELEASE CAPSULE 800 MG PO ×3 (08:36→17:57)
--- NOTE | 2021-01-24 10:42 | WPDGIPROGNO ---
Progress Note: A&P Assessment and Plan (1) Ulcerative colitis: Code(s): K51.90 - Ulcerative colitis, unspecified, without complications Status: Acute Assessment and Plan: Patient continues to have bloody diarrhea consistent with known ulcerative colitis. Plan is to restart intravenous Solu-Medrol. Continue mesalamine orally. Broad-spectrum antibiotics have been started empirically. May discontinue if stool cultures are negative. He may benefit from Flagyl or Cipro as these have concomitant benefit for inflammatory bowel disease as an alternate type antibiotic (2) Bloody diarrhea: Code(s): R19.7 - Diarrhea, unspecified Status: Resolved Assessment and Plan: will continue monitor blood loss in hemoglobin. Anticoagulation for DVT may aggravate bleeding. Will need to be followed conservatively at this point. (3) DVT (deep venous thrombosis): Code(s): I82.409 - Acute embolism and thrombosis of unspecified deep veins of unspecified lower extremity Status: Acute (4) Leukocytosis: Code(s): D72.829 - Elevated white blood cell count, unspecified Status: Acute Assessment and Plan: Elevated white count likely related to steroid use. Patient has had cultures which are negative to date. No evidence for infection. Subjective Date/time seen: 01/24/21 10:42 Patient continues to complain rather significant diarrhea daily. Small amount of blood described. He also complains of rather significant lower extremity leg pain. Tolerating diet with no pain associated with intake. Review of Systems Review of Systems: All systems reviewed & are unremarkable except as noted in HPI and below Exam Narrative: Exam Narrative: Physical exam reveals patient be somewhat uncomfortable at rest. HEENT exam unremarkable. Patient anicteric. Lungs are clear. Heart without murmur. Abdomen bowel sounds present soft with no localized tenderness. He reports discomfort to the low did abdomen. Extremities reveal tenderness primarily on the right calf. Objective Data Vital Signs Vital Signs: Vital Signs - 24 hr 01/23/21 11:15 01/23/21 12:00 01/23/21 14:00 Temperature 99.6 F Pulse Rate 107 H 105 H 98 Respiratory Rate 14 Blood Pressure 128/68 Pulse Oximetry 99 01/23/21 16:00 01/23/21 20:00 01/23/21 21:50 Temperature 98.4 F 99 F Pulse Rate 95 91 Respiratory Rate 14 16 Blood Pressure 138/82 139/75 Pulse Oximetry 98 98 98 Intake/Output Intake/Output: Intake & Output 01/21/21 01/22/21 01/23/21 01/24/21 23:59 23:59 23:59 23:59 Intake Total 2050 4160 3400 400 Output Total 400 1375 975 Balance 1650 2785 2425 400 Meds/Results Medications: Active Medications Generic Name Dose Route Start Last Admin Trade Name Freq PRN Reason Stop Dose Admin Apixaban 10 mg 01/23/21 21:00 01/24/21 08:36 Apixaban 5 Mg Tablet PO 01/30/21 09:01 10 mg Q12HR FOREIGN Administration Apixaban 5 mg 01/30/21 21:00 Apixaban 5 Mg Tablet PO Q12HR FOREIGN Dicyclomine HCl 10 mg 01/21/21 18:39 01/23/21 23:47 Dicyclomine Hcl 10 Mg Capsule PO 10 mg Q6H PRN Administration Abdominal Cramping Diphenoxylate HCl/Atropine 1 tablet 01/23/21 08:39 01/23/21 13:45 Diphenoxylate/Atropine (*Crx) 2.5 Mg Tablet PO 1 tablet PRN PRN Administration Diarrhea Ferrous Sulfate 324 mg 01/22/21 12:00 01/24/21 08:36 Ferrous Sulfate 324 Mg Tablet PO 324 mg BIDWM FOREIGN Administration Hydromorphone HCl 0.5 mg 01/21/21 12:52 01/24/21 05:52 Hydromorphone Hcl Inj (*Crx) 1 Mg/Ml Syr IV PUSH 0.5 mg Q3H PRN Administration Pain Rated 7-10 Piperacillin/Tazobactam/Dextrose 3.375 gm in 50 mls @ 100 mls/hr 01/21/21 18:00 01/24/21 05:45 Zosyn 3.375 Gm/D5w 50ml Pm IVPB 100 mls/hr Q6HR FOREIGN Administration Mesalamine 800 mg 01/22/21 13:00 01/24/21 08:36 Mesalamine 400 Mg Delayed Release Capsule PO 800 mg TID FOREIGN Administration
[2021-01-24] MEDS: DICYCLOMINE HCL 10 MG CAPSULE PO ×2 (12:03→17:57)
[2021-01-24] MEDS: methylPREDNISolone SOD SUCC 125 MG VIAL 60 MG IV PUSH ×2 (12:03→17:57)
[2021-01-24 14:00] VITALS: BP 124/63; PULSE 91; RESP 16; TEMP 37.2; O2SAT 99
--- NOTE | 2021-01-24 16:42 | PM.IMPN ---
Progress Note: A&P Assessment and Plan (1) Acute deep vein thrombosis (DVT) of both lower extremities: Code(s): I82.403 - Acute embolism and thrombosis of unspecified deep veins of lower extremity, bilateral Status: Acute Assessment and Plan: Doppler of the bilateral LE showing thrombus within the right and left popliteal veins. Thrombosis is also noted involving right posterior tibial and peroneal and left peroneal veins as well as bilateral soleal veins. CTA chest negative for PE. He has been started on Heparin drip due to his ongoing rectal bleeding. Hgb did drop into the 9 range but stable. Case management to determine pricing for NOACs. Stop IV fluids. Increase activity. PT/OT Will continue with p.o. Eliquis. Once WBCs better will discharge the patient home. (2) Leukocytosis: Code(s): D72.829 - Elevated white blood cell count, unspecified Status: Acute Assessment and Plan: WBC 11K at time of discharge but 19K on admission and has climbed to 23K. Possibly related to the steroids. Consider infectious etiology. CDiff negative. BCx NGTD. WBC better at 18.7K but now with mild bandemia. CRP very high from the UC but procalc is negative making occult infection less likely. Continue to follow. Contnue Zosyn for now Repeat CBC in the morning. (3) Anemia: Code(s): D64.9 - Anemia, unspecified Status: Acute Assessment and Plan: Hgb 16 at time of last admission and dropped to 11.5. Hgb here 11.2 but dropped to the 9 range with the IV fluids. Suspect acute blood loss from his rectal bleeding. Still having hematochezia. Iron added. Continue to monitor HH. Transfuse as needed. (4) Ulcerative colitis: Code(s): K51.90 - Ulcerative colitis, unspecified, without complications Status: Acute Assessment and Plan: Patient seen here on 01/11 for rectal bleeding and colonoscopy showing UC. Biopsy performed with pathology showing diffuse chronic active colitis with crypt abscess. CT A/P done this admission as well showing diffuse thickening of the colon. Zosyn started. GI folowing. WBC trending down. Continue mesalamine and Prednisone. Lomotil added to slow diarrhea down. WBC is getting better, will repeat in the morning. Stays okay possible discharge in the morning. (5) Tobacco abuse: Code(s): Z72.0 - Tobacco use Status: Acute Assessment and Plan: The patient was educated about the benefits of smoking cessation. (6) Hypokalemia: Code(s): E87.6 - Hypokalemia Status: Acute Assessment and Plan: Potassium low at 3.1 on admission probably related to his diarrhea. This was replaced. Potassium this morning is again dropped to 2.9 and this was replaced again. Magnesium 2.1. Continue to follow. Continue to replace as needed. Additional Plan Will replace potassium. Repeat BMP in the morning. Repeat CBC in the morning. If potassium and WBC count are better, will discharge the morning. Subjective Date/time seen: 01/24/21 16:42 Interval history: 40yo male recently hospitalized for rectal bleeding and found to have UC who returns after being home for 5 days with calf pain and found to have bilateral LE DVT. As above noted Patient was seen during the rounds today. Feeling slightly better. Decreased abdominal pain. Decrease pain in the right leg. No shortness of breath or chest pain. Mood stable. Review of Systems Review of Systems: All systems reviewed & are unremarkable except as noted in HPI and below ( the history and physical exam) Exam Narrative: Exam Narrative: Vital signs are stable Gen - NARD Chest -few basilar inspiratory crackles that improve with deep inspiration. Normal respiratory rate CV - RRR S1/S2; Tele showing low grade sinus tachycardia Abd - Soft, diffusely tender but improved from yesterday. +BS. Ext - trace bialteral pedal edema. 2+ DP bilaterally. +Homans bilate
[2021-01-24 22:00] VITALS: BP 115/70; PULSE 84; RESP 18; TEMP 36.5; O2SAT 98
[2021-01-25] MEDS: methylPREDNISolone SOD SUCC 125 MG VIAL 60 MG IV PUSH ×5 (00:27→23:38)
[2021-01-25] MEDS: HYDROmorphone HCL INJ (*CRX) 1 MG/ML SYR 0.5 MG IV PUSH ×4 (02:11→15:35)
[2021-01-25 06:00] VITALS: BP 128/76; PULSE 78; RESP 18; TEMP 36.4; O2SAT 99
[2021-01-25 06:27] LABS: Hematocrit 25.5 % (42.0-52.0); Hemoglobin 8.6 g/dL (14.0-18.0); Mean Corpuscular HGB Conc 33.7 g/dl (32-36); Mean Corpuscular Hemoglobin 29.9 pg (26-34); Mean Corpuscular Volume 88.5 fl (80-100); Mean Platelet Volume 8.5 fl (7.4-10.4); Platelet Count Result 323 k/mm3 (150-375); Red Blood Count 2.88 M/mm3 (4.6-6.20); Red Cell Distribution Width 12.2 % (11.5-14.5); White Blood Count 17.2 K/mm3 (4.5-10.0)
[2021-01-25 06:42] LABS: Alanine Aminotransferase 9 U/L (4-50); Albumin Level 2.8 g/dL (3.5-5.1); Alkaline Phosphatase 59 U/L (38-126); Anion Gap 3 mmol/L (8-16); Aspartate Amino Transferase 18 U/L (17-59); Bilirubin,Total 0.2 mg/dL (0.2-1.3); Blood Urea Nitrogen 8 mg/dL (9-20); Calcium 8.3 mg/dL (8.4-10.2); Carbon Dioxide 31 mmol/L (22-30); Chloride 101 mmol/L (98-107); Estimated CRCL calculation 142 ml/min; Estimated Glomerular Filt Rate > 60; Glucose 163 mg/dL (75-110); Potassium 3.3 mmol/L (3.4-5.0); Sodium 135 mmol/L (137-145)
--- NOTE | 2021-01-25 07:05 | PM.IMPN ---
Progress Note: A&P Assessment and Plan (1) Acute deep vein thrombosis (DVT) of both lower extremities: Code(s): I82.403 - Acute embolism and thrombosis of unspecified deep veins of lower extremity, bilateral Status: Acute Assessment and Plan: Doppler of the bilateral LE showing thrombus within the right and left popliteal veins. Thrombosis is also noted involving right posterior tibial and peroneal and left peroneal veins as well as bilateral soleal veins. CTA chest negative for PE. He has been started on Heparin drip due to his ongoing rectal bleeding. Hgb did drop into the 9 range but stable. Case management to determine pricing for NOACs. Stop IV fluids. Increase activity. PT/OT Will continue with p.o. Eliquis. Once WBCs better will discharge the patient home. (2) Leukocytosis: Code(s): D72.829 - Elevated white blood cell count, unspecified Status: Acute Assessment and Plan: WBC 11K at time of discharge but 19K on admission and has climbed to 23K. Possibly related to the steroids. Consider infectious etiology. CDiff negative. BCx NGTD. WBC better at 18.7K but now with mild bandemia. CRP very high from the UC but procalc is negative making occult infection less likely. Continue to follow. Contnue Zosyn for now Repeat CBC in the morning. (3) Anemia: Code(s): D64.9 - Anemia, unspecified Status: Acute Assessment and Plan: Hgb 16 at time of last admission and dropped to 11.5. Hgb here 11.2 but dropped to the 9 range with the IV fluids. Suspect acute blood loss from his rectal bleeding. Still having hematochezia. Iron added. Continue to monitor HH. Transfuse as needed. (4) Ulcerative colitis: Code(s): K51.90 - Ulcerative colitis, unspecified, without complications Status: Acute Assessment and Plan: Patient seen here on 01/11 for rectal bleeding and colonoscopy showing UC. Biopsy performed with pathology showing diffuse chronic active colitis with crypt abscess. CT A/P done this admission as well showing diffuse thickening of the colon. Zosyn started. GI folowing. WBC trending down. Continue mesalamine and Prednisone. Lomotil added to slow diarrhea down. WBC is getting better, will repeat in the morning. Stays okay possible discharge in the morning. (5) Tobacco abuse: Code(s): Z72.0 - Tobacco use Status: Acute Assessment and Plan: The patient was educated about the benefits of smoking cessation. (6) Hypokalemia: Code(s): E87.6 - Hypokalemia Status: Acute Assessment and Plan: Potassium low at 3.1 on admission probably related to his diarrhea. This was replaced. Potassium this morning is again dropped to 2.9 and this was replaced again. Magnesium 2.1. Continue to follow. Continue to replace as needed. Additional Plan Patient continues to improve gradually. Patient potassium is slightly low today.Will replace potassium. Repeat BMP in the morning. Increase activity as tolerated. Repeat CBC in the morning. If potassium and WBC count are better, will discharge the morning. Subjective Date/time seen: 01/25/21 07:05 Interval history: 40yo male recently hospitalized for rectal bleeding and found to have UC who returns after being home for 5 days with calf pain and found to have bilateral LE DVT. As above noted Patient was seen during the rounds today. Feeling slightly better. Decreased abdominal pain. Decrease pain in the right leg. No shortness of breath or chest pain. Mood stable. 01/25:- Patient was seen during the morning rounds today. Feeling slightly better. No shortness of breath or chest pain. Decreased abdominal pain. No nausea vomiting. Mood stable. Review of Systems Review of Systems: All systems reviewed & are unremarkable except as noted in HPI and below ( the history and physical exam) Exam Narrative: Exam Narrative: Vital signs are stable Gen
[2021-01-25] MEDS: MESALAMINE 400 MG DELAYED RELEASE CAPSULE 800 MG PO ×3 (07:59→17:44)
[2021-01-25] MEDS: FERROUS SULFATE 324 MG TABLET PO ×2 (07:59→17:45)
[2021-01-25] MEDS: APIXABAN 5 MG TABLET 10 MG PO ×2 (07:59→23:38)
[2021-01-25 08:00] VITALS: BP 127/75; PULSE 93; RESP 18; TEMP 35.8; O2SAT 98
[2021-01-25] MEDS: PANTOPRAZOLE SOD SESQUIHYDRATE 20 MG TAB PO (08:00)
--- NOTE | 2021-01-25 08:47 | WPDGIPROGNO ---
Progress Note: A&P Assessment and Plan (1) Ulcerative colitis: Code(s): K51.90 - Ulcerative colitis, unspecified, without complications Status: Acute Assessment and Plan: patient has ulcerative pancolitis. No indication for infection. Currently on IV Solu-Medrol. We will change this to prednisone when we are certain is symptoms have improved. He will continue salad main orally. Antibiotics are probably not necessary at this stage. May be discontinued. No indication for infection cultures have remained negative. Outpatient follow-up after discharge will be necessary. Patient ongoing abdominal pain appears to be from spasms. Will add Bentyl to his therapeutic regime hopefully this will minimize abdominal pain. (2) Anemia: Code(s): D64.9 - Anemia, unspecified Status: Acute Assessment and Plan: Modest anemia likely from GI blood loss. Currently does not require transfusion. This will need to be monitored as an outpatient as he likely will require anticoagulation for DVT. (3) Leukocytosis: Code(s): D72.829 - Elevated white blood cell count, unspecified Status: Acute Assessment and Plan: leukocytosis more most likely from steroid use. No indication for infection although empiric antibiotics were given initially. Cultures have remained negative. He is afebrile. (4) DVT (deep venous thrombosis): Code(s): I82.409 - Acute embolism and thrombosis of unspecified deep veins of unspecified lower extremity Status: Acute Assessment and Plan: bilateral leg pain noted on admission. Patient identified as having bilateral DVTs right continued to be tender more so than left. Anticoagulation will be required. Because of this we will need to monitor CBC and possibility for lingering blood in stool. Would follow conservatively at this time follow up in the office. Treatment of DVTs per primary care service. Subjective Date/time seen: 01/25/21 08:47 Patient comfortable today. He states he continues to have leg pain right more so than left. Less painful today than yesterday. He reports he is to start physical therapy soon. He reports that abdominal [place] pain is improved as well. He notices pain briefly after oral intake. Otherwise abdomen is nontender. He continues to have urge for bowel movement but less frequent stools. When he does a hold reddish blood is occasionally noted. Review of Systems Review of Systems: All systems reviewed & are unremarkable except as noted in HPI and below Exam Narrative: Exam Narrative: Physical exam reveals patient lying in bed comfortable at rest. HEENT exam reveals he is anicteric. Lungs are clear. Heart without murmur. Abdomen bowel sounds are present soft nontender with no organomegaly. Extremities revealed some mild enlargement to his right half. Mild tenderness noted this area. Objective Data Vital Signs Vital Signs: Vital Signs - 24 hr 01/24/21 14:00 01/24/21 22:00 01/25/21 06:00 Temperature 98.9 F 97.7 F 97.6 F Pulse Rate 91 84 78 Respiratory Rate 16 18 18 Blood Pressure 124/63 115/70 128/76 Pulse Oximetry 99 98 99 01/25/21 08:00 Temperature 96.5 F L Pulse Rate 93 Respiratory Rate 18 Blood Pressure 127/75 Pulse Oximetry 98 Intake/Output Intake/Output: Intake & Output 01/22/21 01/23/21 01/24/21 01/25/21 23:59 23:59 23:59 23:59 Intake Total 4160 3400 1500 890 Output Total 1375 975 350 Balance 2785 2425 1500 540 Meds/Results Medications: Active Medications Generic Name Dose Route Start Last Admin Trade Name Freq PRN Reason Stop Dose Admin Apixaban 10 mg 01/23/21 21:00 01/25/21 07:59 Apixaban 5 Mg Tablet PO 01/30/21 09:01 10 mg Q12HR FOREIGN Administration Apixaban 5 mg 01/30/21 21:00 Apixaban 5 Mg Tablet PO Q12HR FOREIGN Dicyclomine HCl 10 mg 01/21/21 18:39 01/24/21 17:57 Dicyclomine Hcl 10 Mg Capsule PO 10 mg Q6H PRN Administration
[2021-01-25] MEDS: DICYCLOMINE HCL 10 MG CAPSULE 20 MG PO ×3 (10:01→17:44)
[2021-01-25 13:45] VITALS: BP 112/70; PULSE 78; RESP 20; TEMP 35.8; O2SAT 96
[2021-01-25 23:10] VITALS: O2SAT 97
[2021-01-26] VITALS: BP 136/82; PULSE 72; RESP 16; TEMP 36.9; O2SAT 99
[2021-01-26] MEDS: traMADol HCL (*CRX) 50 MG TABLET PO (05:37)
[2021-01-26] MEDS: DICYCLOMINE HCL 10 MG CAPSULE PO (05:38)
[2021-01-26] MEDS: methylPREDNISolone SOD SUCC 125 MG VIAL 60 MG IV PUSH (06:28)
[2021-01-26 06:37] LABS: Hematocrit 27.1 % (42.0-52.0); Mean Corpuscular HGB Conc 33.2 g/dl (32-36); Mean Corpuscular Hemoglobin 30.1 pg (26-34); Mean Corpuscular Volume 90.6 fl (80-100); Mean Platelet Volume 8.6 fl (7.4-10.4); Platelet Count Result 373 k/mm3 (150-375); Red Blood Count 2.99 M/mm3 (4.6-6.20); Red Cell Distribution Width 12.4 % (11.5-14.5); White Blood Count 24.1 K/mm3 (4.5-10.0)
[2021-01-26 06:56] LABS: Alanine Aminotransferase 13 U/L (4-50); Albumin Level 2.7 g/dL (3.5-5.1); Alkaline Phosphatase 71 U/L (38-126); Anion Gap 4 mmol/L (8-16); Aspartate Amino Transferase 19 U/L (17-59); Bilirubin,Total 0.1 mg/dL (0.2-1.3); Blood Urea Nitrogen 12 mg/dL (9-20); Calcium 8.2 mg/dL (8.4-10.2); Carbon Dioxide 30 mmol/L (22-30); Chloride 103 mmol/L (98-107); Estimated CRCL calculation 125 ml/min; Estimated Glomerular Filt Rate > 60; Glucose 220 mg/dL (75-110); Potassium 3.5 mmol/L (3.4-5.0); Sodium 137 mmol/L (137-145)
[2021-01-26 07:19] VITALS: BP 115/62; PULSE 94; RESP 18; TEMP 36.7; O2SAT 98
--- NOTE | 2021-01-26 08:26 | WPDGIPROGNO ---
Progress Note: A&P Assessment and Plan (1) Ulcerative colitis: Code(s): K51.90 - Ulcerative colitis, unspecified, without complications Status: Acute Assessment and Plan: Ulcerative colitis responding slowly to medications. Plan to restart oral prednisone. 60 mg p.o. daily and taper by 5 mg every 5-7 days after discharge. We will continue mesalamine long-term. Asked patient to follow up in the office 2-3 weeks after discharge. Hopefully discharge soon if primary service agrees. Okay with me for discharge at this time (2) DVT (deep venous thrombosis): Code(s): I82.409 - Acute embolism and thrombosis of unspecified deep veins of unspecified lower extremity Status: Acute Assessment and Plan: Patient plan leg pain. On anticoagulation because of DVT. Will need to follow blood count while he is on anticoagulation. (3) Anemia: Code(s): D64.9 - Anemia, unspecified Status: Acute Assessment and Plan: Anemia stable at this juncture. Likely related to bleeding from his colitis. Bleeding has stopped according to the patient. Will need to monitor hemoglobin after discharge. (4) Leukocytosis: Code(s): D72.829 - Elevated white blood cell count, unspecified Status: Acute Assessment and Plan: leukocytosis secondary to steroids. Unlikely to resolve me in short time period no evidence for infection. Antibiotics can be discontinued. Subjective Date/time seen: 01/26/21 08:26 Patient continues to complain of leg pain and difficulty walking. Patient reports less frequent stools. Less pain with starting anti spasmodic agents such as Bentyl. No blood reported in stool finally. Review of Systems Review of Systems: All systems reviewed & are unremarkable except as noted in HPI and below Exam Narrative: Exam Narrative: Physical exam reveals patient to be alert. Vital signs are stable. Patient is anicteric. Lungs are clear to auscultation and percussion heart is without murmur abdomen bowel sounds are present soft no localized tenderness. Objective Data Vital Signs Vital Signs: Vital Signs - 24 hr 01/25/21 13:45 01/25/21 23:10 01/26/21 00:00 Temperature 96.5 F L 98.5 F Pulse Rate 78 72 Respiratory Rate 20 16 Blood Pressure 112/70 136/82 Pulse Oximetry 96 97 99 01/26/21 07:19 Temperature 98.1 F Pulse Rate 94 Respiratory Rate 18 Blood Pressure 115/62 Pulse Oximetry 98 Intake/Output Intake/Output: Intake & Output 01/23/21 01/24/21 01/25/21 01/26/21 23:59 23:59 23:59 23:59 Intake Total 3400 1500 2910 450 Output Total 975 350 1 Balance 2425 1500 2560 449 Meds/Results Medications: Active Medications Generic Name Dose Route Start Last Admin Trade Name Freq PRN Reason Stop Dose Admin Apixaban 10 mg 01/23/21 21:00 01/25/21 23:38 Apixaban 5 Mg Tablet PO 01/30/21 09:01 10 mg Q12HR FOREIGN Administration Apixaban 5 mg 01/30/21 21:00 Apixaban 5 Mg Tablet PO Q12HR FOREIGN Dicyclomine HCl 10 mg 01/21/21 18:39 01/26/21 05:38 Dicyclomine Hcl 10 Mg Capsule PO 10 mg Q6H PRN Administration Abdominal Cramping Dicyclomine HCl 20 mg 01/25/21 09:00 01/25/21 17:44 Dicyclomine Hcl 10 Mg Capsule PO 20 mg TID FOREIGN Administration Diphenoxylate HCl/Atropine 1 tablet 01/23/21 08:39 01/23/21 13:45 Diphenoxylate/Atropine (*Crx) 2.5 Mg Tablet PO 1 tablet PRN PRN Administration Diarrhea Ferrous Sulfate 324 mg 01/22/21 12:00 01/25/21 17:45 Ferrous Sulfate 324 Mg Tablet PO 324 mg BIDWM FOREIGN Administration Hydromorphone HCl 0.5 mg 01/21/21 12:52 01/25/21 15:35 Hydromorphone Hcl Inj (*Crx) 1 Mg/Ml Syr IV PUSH 0.5 mg Q3H PRN Administration Pain Rated 7-10 Piperacillin/Tazobactam/Dextrose 3.375 gm in 50 mls @ 100 mls/hr 01/21/21 18:00 01/26/21 05:38 Zosyn 3.375 Gm/D5w 50ml Pm IVPB 100 mls/hr Q6HR FOREIGN Administration Mesalamine 800 mg 01/22/21 13:00
[2021-01-26] MEDS: MESALAMINE 400 MG DELAYED RELEASE CAPSULE 800 MG PO ×3 (09:00→16:29)
[2021-01-26] MEDS: APIXABAN 5 MG TABLET 10 MG PO ×2 (09:01→20:27)
[2021-01-26] MEDS: FERROUS SULFATE 324 MG TABLET PO ×2 (09:02→16:30)
[2021-01-26] MEDS: PANTOPRAZOLE SOD SESQUIHYDRATE 20 MG TAB PO (09:02)
[2021-01-26] MEDS: DICYCLOMINE HCL 10 MG CAPSULE 20 MG PO ×2 (11:35→16:29)
--- NOTE | 2021-01-26 14:22 | PM.IMPN ---
Progress Note: A&P Assessment and Plan (1) Acute deep vein thrombosis (DVT) of both lower extremities: Code(s): I82.403 - Acute embolism and thrombosis of unspecified deep veins of lower extremity, bilateral Status: Acute Assessment and Plan: Doppler of the bilateral LE showing thrombus within the right and left popliteal veins. Thrombosis is also noted involving right posterior tibial and peroneal and left peroneal veins as well as bilateral soleal veins. CTA chest negative for PE. He has been started on Heparin drip due to his ongoing rectal bleeding. Hgb did drop into the 9 range but stable. Case management to determine pricing for NOACs. Stop IV fluids. Increase activity. PT/OT Will continue with p.o. Eliquis. Once WBCs better will discharge the patient home. (2) Leukocytosis: Code(s): D72.829 - Elevated white blood cell count, unspecified Status: Acute Assessment and Plan: WBC 11K at time of discharge but 19K on admission and has climbed to 23K. Possibly related to the steroids. Consider infectious etiology. CDiff negative. BCx NGTD. WBC better at 18.7K but now with mild bandemia. CRP very high from the UC but procalc is negative making occult infection less likely. Continue to follow. Contnue Zosyn for now monitor wbc count (3) Anemia: Code(s): D64.9 - Anemia, unspecified Status: Acute Assessment and Plan: Hgb 16 at time of last admission and dropped to 11.5. Hgb here 11.2 but dropped to the 9 range with the IV fluids. Suspect acute blood loss from his rectal bleeding. Still having hematochezia. Iron added. Continue to monitor HH. Transfuse as needed. hematochezia has now stopped. h nad h stable. (4) Ulcerative colitis: Code(s): K51.90 - Ulcerative colitis, unspecified, without complications Status: Acute Assessment and Plan: Patient seen here on 01/11 for rectal bleeding and colonoscopy showing UC. Biopsy performed with pathology showing diffuse chronic active colitis with crypt abscess. CT A/P done this admission as well showing diffuse thickening of the colon. Zosyn started. GI folowing. WBC trending down. Continue mesalamine and Prednisone. Lomotil added to slow diarrhea down. WBC remains elevated (5) Tobacco abuse: Code(s): Z72.0 - Tobacco use Status: Acute Assessment and Plan: The patient was educated about the benefits of smoking cessation. (6) Hypokalemia: Code(s): E87.6 - Hypokalemia Status: Acute Assessment and Plan: Potassium low at 3.1 on admission probably related to his diarrhea. This was replaced. Potassium this morning is again dropped to 2.9 and this was replaced again. Magnesium 2.1. Continue to follow. Continue to replace as needed. Additional Plan wbc up today. onzosyn. no signs of any infection seen. could be steroid related and acute reaction from his dvt. will mointor though and recheck in am. he also had bloody bowel movmeent last one ysteday and not since then. hb is up and stable today. will need to monitor that as well before discharge. reehcek labs in am. Subjective Date/time seen: 01/26/21 14:22 Interval history: 40yo male recently hospitalized for rectal bleeding and found to have UC who returns after being home for 5 days with calf pain and found to have bilateral LE DVT. As above noted Patient was seen during the rounds today. Feeling slightly better. Decreased abdominal pain. Decrease pain in the right leg. No shortness of breath or chest pain. Mood stable. 01/25:- Patient was seen during the morning rounds today. Feeling slightly better. No shortness of breath or chest pain. Decreased abdominal pain. No nausea vomiting. Mood stable. 01/26: his blood ins tool has stopped. no fever, chills, no abdominal pain, still has some diarrhea. c diff came back negative. no sob,cehst pain. right leg still hruts and tramadol does not work for
[2021-01-26] MEDS: HYDROcodone/acetaminophen (*CRX) 5-325 MG TABLET 1 TAB PO ×2 (16:24→20:27)
[2021-01-26 22:00] VITALS: BP 113/67; PULSE 93; RESP 16; TEMP 36.1; O2SAT 97
[2021-01-27] MEDS: HYDROmorphone HCL INJ (*CRX) 1 MG/ML SYR 0.5 MG IV PUSH (04:44)
[2021-01-27] MEDS: DICYCLOMINE HCL 10 MG CAPSULE 20 MG PO ×2 (05:58→12:17)
[2021-01-27 06:00] VITALS: BP 123/71; PULSE 78; RESP 16; TEMP 36.2; O2SAT 98
[2021-01-27 08:00] VITALS: PULSE 78; RESP 16; O2SAT 98
[2021-01-27 08:05] LABS: Basophils Percent Auto 0.2 % (0.2-1.2); Eosinophils Percent Auto 0.2 % (0-4.4); Hematocrit 28.1 % (42.0-52.0); Immature Granulocyte Absolute 0.64 K/mm3 (0.00-0.031); Immature Granulocyte Percent A 3.9 % (0-0.5); Lymphocytes Absolute Auto 2.32 K/mm3 (0.9-3.2); Mean Corpuscular Volume 90.6 fl (80-100); Mean Platelet Volume 8.3 fl (7.4-10.4); Monocytes Absolute Auto 1.6 K/mm3 (0.1-0.6); Monocytes Percent Auto 9.6 % (2.6-8.5); Neutrophils Percent Auto 72.1 % (45.5-73.1); Nucleated Red Blood Cells Absolute Auto 0.1 K/mm3 (0.0-0.012); Nucleated Red Blood Cells Perc 0.3 % (0.0-0.2); Platelet Count Result 372 k/mm3 (150-375); Red Cell Distribution Width 12.6 % (11.5-14.5); White Blood Count 16.6 K/mm3 (4.5-10.0)
[2021-01-27] MEDS: HYDROcodone/acetaminophen (*CRX) 5-325 MG TABLET 1 TAB PO ×2 (08:13→12:16)
[2021-01-27] MEDS: FERROUS SULFATE 324 MG TABLET PO (08:14)
[2021-01-27] MEDS: APIXABAN 5 MG TABLET 10 MG PO (08:14)
[2021-01-27] MEDS: PANTOPRAZOLE SOD SESQUIHYDRATE 20 MG TAB PO (08:14)
[2021-01-27] MEDS: MESALAMINE 400 MG DELAYED RELEASE CAPSULE 800 MG PO (08:14)
[2021-01-27 08:46] LABS: Anion Gap 5 mmol/L (8-16); Blood Urea Nitrogen 13 mg/dL (9-20); Calcium 8.1 mg/dL (8.4-10.2); Carbon Dioxide 25 mmol/L (22-30); Chloride 105 mmol/L (98-107); Estimated CRCL calculation 125 ml/min; Estimated Glomerular Filt Rate > 60; Glucose 100 mg/dL (75-110); Potassium 3.5 mmol/L (3.4-5.0); Sodium 135 mmol/L (137-145)
--- NOTE | 2021-01-27 10:02 | WPDGIPROGNO ---
Progress Note: A&P Additional Plan [facility] for Dr. Wynne 27 Jan 2021 Denies AP, N, V. Paty po. Loose, bloody BM this am VSS soft/NT Hct 28 A/P Ulcerative Colitis with diarrhea, hematochezia on Eliquis for DVT - Minimal bleed - Slowly improving on meds including Prednisone 60 mg po daily and mesalamine; continue - Follow labs - Dispo per others - Follow-up with Dr. Wynne in 2-3 weeks Thanks, [facility] [phone] Cc: Dr.D. Hebert; Dr. Milo Wynne Subjective Date/time seen: 01/27/21 10:02 Objective Data Vital Signs Vital Signs: Vital Signs - 24 hr 01/26/21 22:00 01/27/21 06:00 Temperature 36.1 C L 36.2 C L Pulse Rate 93 78 Respiratory Rate 16 16 Blood Pressure 113/67 123/71 Pulse Oximetry 97 98 Intake/Output Intake/Output: Intake & Output 01/24/21 01/25/21 01/26/21 01/27/21 23:59 23:59 23:59 23:59 Intake Total 1500 2910 2019 670 Output Total 350 1 Balance 1500 2560 2019 670 Meds/Results Medications: Active Medications Generic Name Dose Route Start Last Admin Trade Name Freq PRN Reason Stop Dose Admin Hydrocodone Bitart/Acetaminophen 1 tab 01/26/21 14:48 01/27/21 08:13 Hydrocodone/Acetaminophen (*Crx) 5-325 Mg Tablet PO 1 tab Q4H PRN Administration Pain Rated 4-6 Apixaban 10 mg 01/23/21 21:00 01/27/21 08:14 Apixaban 5 Mg Tablet PO 01/30/21 09:01 10 mg Q12HR FOREIGN Administration Apixaban 5 mg 01/30/21 21:00 Apixaban 5 Mg Tablet PO Q12HR FOREIGN Dicyclomine HCl 20 mg 01/26/21 11:30 01/27/21 05:58 Dicyclomine Hcl 10 Mg Capsule PO 20 mg AC FOREIGN Administration Diphenoxylate HCl/Atropine 1 tablet 01/23/21 08:39 01/23/21 13:45 Diphenoxylate/Atropine (*Crx) 2.5 Mg Tablet PO 1 tablet PRN PRN Administration Diarrhea Ferrous Sulfate 324 mg 01/22/21 12:00 01/27/21 08:14 Ferrous Sulfate 324 Mg Tablet PO 324 mg BIDWM FOREIGN Administration Hydromorphone HCl 0.5 mg 01/21/21 12:52 01/27/21 04:44 Hydromorphone Hcl Inj (*Crx) 1 Mg/Ml Syr IV PUSH 0.5 mg Q3H PRN Administration Pain Rated 7-10 Piperacillin/Tazobactam/Dextrose 3.375 gm in 50 mls @ 100 mls/hr 01/21/21 18:00 01/27/21 06:38 Zosyn 3.375 Gm/D5w 50ml Pm IVPB Infused Q6HR FOREIGN Infusion Mesalamine 800 mg 01/22/21 13:00 01/27/21 08:14 Mesalamine 400 Mg Delayed Release Capsule PO 800 mg TID FOREIGN Administration Ondansetron HCl 4 mg 01/21/21 16:59 01/22/21 02:40 Ondansetron Inj 4 Mg/2 Ml Vial IV PUSH 4 mg Q4H PRN Administration Nausea And Vomiting Pantoprazole Sodium 20 mg 01/22/21 09:00 01/27/21 08:14 Pantoprazole Sod Sesquihydrate 20 Mg Tab PO 20 mg QAM FOREIGN Administration Tramadol HCl 50 mg 01/21/21 18:39 01/26/21 05:37 Tramadol Hcl (*Crx) 50 Mg Tablet PO 50 mg Q8H PRN Administration Pain Rated 1-3 Radiology Results: ITS Impressions Venous Doppler Study 01/21/21 09:34 IMPRESSION: Bilateral deep venous thrombosis of the lower extremities Chest/Abdomen/Pelvis CTA 01/21/21 10:51 IMPRESSION: Diffuse thickening of the colonic wall is again noted, consistent with nonspecific colitis Small sliding hiatal hernia Labs Labs: Laboratory Results - last 24 hr 01/27/21 01/27/21 07:34 07:34 WBC 16.6 H RBC 3.10 L Hgb 9.0 L Hct 28.1 L MCV 90.6 MCH 29.0 MCHC 32.0 RDW 12.6 Plt Count 372 MPV 8.3 Immature Gran % (Auto) 3.9 H Neut % (Auto) 72.1 Lymph % (Auto) 14.0 L [place] % (Auto) 9.6 H Eos % (Auto) 0.2 Baso % (Auto) 0.2 Lymph # (Auto) 2.32 [place] # (Auto) 1.6 H Eos # (Auto) 0.0 Baso # (Auto) 0.0 Abs Immat Gran (auto) 0.64 H Absolute Neuts (auto) 12.0 H Absolute Nucleated RBC 0.1 H Nucleated RBC % 0.3 H Sodium 135 L Potassium 3.5 Chloride 105 Carbon Dioxide 25 Anion Gap 5 L BUN 13 Creatinine 0.80 Estim Creat Clear Calc 125 Estimated GFR > 60 Glucose 100 Calcium 8.1 L
--- NOTE | 2021-01-27 10:19 | PM.DS ---
DS: Admitting Diagnosis Admitting Diagnosis Admitting Diagnosis: Ulcerative colitis DS: Discharge Diagnosis Discharge Diagnosis (1) Acute deep vein thrombosis (DVT) of both lower extremities: Code(s): I82.403 - Acute embolism and thrombosis of unspecified deep veins of lower extremity, bilateral Status: Acute Assessment and Plan: Doppler of the bilateral LE showing thrombus within the right and left popliteal veins. Thrombosis is also noted involving right posterior tibial and peroneal and left peroneal veins as well as bilateral soleal veins. CTA chest negative for PE. He has been started on Heparin drip due to his ongoing rectal bleeding. Hgb did drop into the 9 range but stable. Case management to determine pricing for NOACs. Stop IV fluids. Increase activity. PT/OT Will continue with p.o. Eliquis. Once WBCs better will discharge the patient home. (2) Leukocytosis: Code(s): D72.829 - Elevated white blood cell count, unspecified Status: Acute Assessment and Plan: WBC 11K at time of discharge but 19K on admission and has climbed to 23K. Possibly related to the steroids. Consider infectious etiology. CDiff negative. BCx NGTD. WBC better at 18.7K but now with mild bandemia. CRP very high from the UC but procalc is negative making occult infection less likely. Continue to follow. Contnue Zosyn for now monitor wbc count (3) Anemia: Code(s): D64.9 - Anemia, unspecified Status: Acute Assessment and Plan: Hgb 16 at time of last admission and dropped to 11.5. Hgb here 11.2 but dropped to the 9 range with the IV fluids. Suspect acute blood loss from his rectal bleeding. Still having hematochezia. Iron added. Continue to monitor HH. Transfuse as needed. hematochezia has now stopped. h nad h stable. (4) Ulcerative colitis: Code(s): K51.90 - Ulcerative colitis, unspecified, without complications Status: Acute Assessment and Plan: Patient seen here on 01/11 for rectal bleeding and colonoscopy showing UC. Biopsy performed with pathology showing diffuse chronic active colitis with crypt abscess. CT A/P done this admission as well showing diffuse thickening of the colon. Zosyn started. GI folowing. WBC trending down. Continue mesalamine and Prednisone. Lomotil added to slow diarrhea down. WBC remains elevated (5) Tobacco abuse: Code(s): Z72.0 - Tobacco use Status: Acute Assessment and Plan: The patient was educated about the benefits of smoking cessation. (6) Hypokalemia: Code(s): E87.6 - Hypokalemia Status: Acute Assessment and Plan: Potassium low at 3.1 on admission probably related to his diarrhea. This was replaced. Potassium this morning is again dropped to 2.9 and this was replaced again. Magnesium 2.1. Continue to follow. Continue to replace as needed. DS: Summary Hospital Course Hospital Course: 89 years old male admitted complained having a exception of ulcerative colitis. Patient was also found to have DVT of the lower extremity. Patient was given steroid antibiotics and also adequate patient. GI service was consulted. Patient did not have any complication during the stay in the hospital. Today patient is feeling better so patient discharged home in stable condition. Status at Discharge Functional status at discharge: independent ambulation Overall status at discharge: patient is back to baseline Time Spent with Patient Time attestation: Total time spent providing and/or coordinating discharge services: Time spent: Less than 30 minutes Exam Narrative: Exam Narrative: gen - NARD Chest -clear to auscultation. Normal respiratory rate CV - RRR S1/S2; Tele showing low grade sinus tachycardia Abd - Soft, diffusely tender but improved from yesterday. +BS. Ext - trace bialteral pedal edema. 2+ DP bilaterally. Psych - Nml mood, odd affect Skin - Warm and dry RIght lower
[2021-01-27 10:59] VITALS: BP 123/71; PULSE 78; RESP 16; TEMP 36.2; O2SAT 98
== END 2021-01-27 12:55 | disposition home or self-care (01) | DRG 300 ==
LOC: ANHED 11:17 → ANHIMU 11:29 → ANH3MEDSUR 01-24 07:31 → ANHIMU 01-30 13:12
PROVIDERS: Internal Medicine; Physician Assistant; Admitting Provider Internal Medicine; Emergency Provider Emergency Medicine; PCP Family Medicine; Visit Provider Internal Medicine
DX: I82.433 Acute embolism and thrombosis of popliteal vein, bilateral (principal); K51.011 Ulcerative (chronic) pancolitis with rectal bleeding; D62 Acute posthemorrhagic anemia; I82.453 Acute embolism and thrombosis of peroneal vein, bilateral; I82.441 Acute embolism and thrombosis of right tibial vein; I82.463 Acute embolism and thrombosis of calf muscular vein, bilateral; E87.6 Hypokalemia; D72.829 Elevated white blood cell count, unspecified; T38.0X5A Adverse effect of glucocorticoids and synthetic analogues, initial encounter; Z87.891 Personal history of nicotine dependence
CPT/HCPCS: 36415; 71275; 74177; 80048; 80053; 82550; 83605; 83735; 84132; 84145; 85014; 85018; 85025; 85027; 85610; 85730; 86140; 86850; 86900; 86901; 87040; 87324; 93970; 96365; 96366; 96367; 96368; 96375; 96376; 97110; 97116; 97161; 97165; 97530; 99285; A9270; G0378; J1170; J1644; J2270; J2405; J2543; J2930; J3475; J3480; J7030; J7512; Q9967